=== PATIENT | female | born 1985 | race Caucasian/White ===

== ENCOUNTER 2019-10-28 08:28 | Emergency (ER) | payer SELFPAY ==
[2019-10-28 08:29] VITALS: BP 191/129; PULSE 102; RESP 16; TEMP 36.5; O2SAT 98; BMI 27.4
--- NOTE | 2019-10-28 08:44 | ED_ITS ---
HPI - Chest Pain General: Chief Complaint: Chest Pain Stated Complaint: Facial numbness, CP Time Seen by Provider: 10/28/19 08:44 History of Present Illness: HPI narrative: 34-year-old female who presents emergency room with a complaint of left-sided facial numbness and some drooping. She denies having any pain in her teeth she does have dental issues but is not had any swelling or pain per se in the teeth she is noticed her blood pressure is elevated when she arrived here. She has no other symptoms of weakness. Associated symptoms: Deny abdominal pain, dyspnea, fever(s), nausea, palpitation s, syncope or vomiting Review of Systems Const: Denies: fever, chills, body aches, fatigue, malaise or night sweats Eyes: Denies: change in vision or blurry vision ENMT: Denies: throat pain, oral sores/lesions, dental pain, nasal discharge or nasal congestion Card: Denies: chest pain, palpitations, irregular heart rhythm, edema, syncop e, shortness of breath on exertion, shortness of breath when lying down or leg pain with exertion Resp: Denies: shortness of breath, productive cough, non-productive cough or wheezing GI: Denies: abdominal pain, nausea, vomiting, vomiting blood, coffee grounds in vomit, difficulty swallowing, heartburn/indigestion, diarrhea, constipation, cramping, blood in stool or black tarry stool : Denies: flank pain, painful urination, urinary frequency, urinary urgency, urinary incontinence or blood in urine Musc: Denies: neck pain, back pain, extremity pain, extremity swelling, joint pain or joint swelling Skin/Breast: Denies: rash, itching or redness Neuro: Denies: headache, numbness in extremities, weakness in extremities, changes in sensation, lack of coordination, difficulty walking, frequent falls, dizziness, vertigo or confusion Psych: Denies: anxiety, depression, loss of interest, visual hallucinations, auditory hallucinations, suicidal ideation or homicidal ideation Endo: Denies: excessive urination, excessive thirst, tired all the time or cold intolerance Ethan/Lymph: Denies: easy bruising, easy bleeding, petechiae, enlarged lymph nodes or tender lymph nodes PFSH ED PFSH: Statuses (acute, chronic, etc) shown below reflect problem list status as previously entered and may not be historically accurate Social History Smoking and tobacco status: current every day smoker Physical Exam Const: COMMON NORMALS: average body habitus, oriented x3 and alert GENERAL APPEARANCE: cooperative, comfortable, well kempt and well developed NUTRITIONAL APPEARANCE: obese ORIENTATION/CONSCIOUSNESS: Yes awake, Yes oriented to person and Yes oriented to place HENMT: COMMON NORMALS: normocephalic, head/scalp atraumatic, EAC's normal, TM's normal bilaterally, external nose normal, moist oral mucous membranes and oropharynx normal HEAD & SCALP: normocephalic and atraumatic NOSE: external nose normal EXTERNAL AUDITORY CANAL: EAC's normal TYMPANIC MEMBRANE: TM's normal bilaterally MOUTH: oral and palatal mucosa normal, lip normal and tongue normal THROAT: posterior oropharynx normal and tonsils normal Eye: COMMON NORMALS: PERRL, EOMs intact bilaterally, conjunctivae normal and no scleral icterus CONJUNCTIVA: Yes conjunctivae normal PUPIL: Yes PERRL Neck/C-Spine: COMMON NORMALS: full ROM, no lymphadenopathy, supple, no meningeal signs and thyroid normal THYROID: thyroid normal and asymmetrical Lymph: LYMPHATIC: no lymphadenopathy noted Resp: COMMON NORMALS: normal respiratory effort, no retractions, no use of accessory muscles and clear to auscultation bilaterally AUSCULTATION: clear to auscultation bilaterally Cardio: COMMON NORMALS: regular rate and regular rhythm RATE: regular rate RHYTHM: regular rhythm HEART SOUNDS: no murmurs GI: COMMON NORMALS: normal to inspection, nondistended, normoactive bowel sounds, soft to palpation and no hepatosplenomegaly PALPATION: Yes soft and Yes no hepatosplenomegaly : COMMON NORMALS: Yes no CVA tenderness BLADDER/KIDNEY EXAM: Yes no CVA tenderness Back/Pelvis: COMMON NORMALS: no CVA tenderness LUMBAR SPINE/LOWER BACK: Yes normal to inspection Extremity: COMMON NORMALS: no clubbing, cyanosis or edema, no calf tenderness and no pedal edema Neuro: COMMON NORMALS: oriented x3 SENSORIUM/ORIENTATION: Yes alert, Yes oriented to person and Yes oriented to place MENINGEAL SIGNS: Yes no meningeal signs OTHER: Patient has an isolated facial nerve palsy.. She has like a partial Seo's palsy just affecting the cheek does not affect the eyes she has a little bit of droop of the corner of her mouth no tongue abnormality she did not have any aura of ear pain. She has no other symptoms at this time. Psych: APPEARANCE: Yes well kempt Skin: COMMON NORMALS: no rashes or lesions noted and skin turgor normal GENERAL SKIN EXAM: no rashes or lesions noted and turgor normal Course ED course: I do believe she has a partial nerve palsy not a central nervous system neurologic event. We will go ahead and discharge her home her blood pressure is elevated will start on a low-dose of amlodipine in addition to that we will add aspirin daily we will have her follow-up with Dr. Frias. The nerve palsy is on her right side of her face she has some right arm weakness that she is complaining of but no deficits are found on exam. Given that there both on the right side I do not suspect that this actually is a strokelike episode. Vital Signs: Vital signs: Vital Signs Temperature 97.7 F 10/28/19 08:29 Pulse Rate 83 10/28/19 12:52 Respiratory Rate 17 10/28/19 12:52 Blood Pressure 183/116 10/28/19 12:52 Pulse Oximetry 97 10/28/19 12:52 MDM - Chest Pain Lab Data: Labs: Lab Results 10/28/19 10/28/19 10/28/19 Range/Units 08:50 08:50 08:50 WBC 9.7 (4.0-10.0) 10^3/ uL RBC 5.00 (4.1-5.3) 10^6/u L Hgb 15.2 (11.5-15.3) g/dL Hct 45.2 (37.0-47.0) % MCV 90.4 (81-99) fL MCH 30.4 (28.0-34.0) pg MCHC 33.6 (30.0-36.0) g/dL RDW 12.1 (12.1-15.1) % Plt Count 305 (130-400) 10^3/c mm MPV 10.4 (7.4-10.4) fL Neut % (Auto) 68.7 % Lymph % (Auto) 23.1 % [place] % (Auto) 5.1 % Eos % (Auto) 2.1 % Baso % (Auto) 0.6 % Neut # (Auto) 6.7 (1.8-7.7) 10^3/u L Lymph # (Auto) 2.3 (0.8-4.8) 10^3/u L [place] # (Auto) 0.5 (0.2-0.9) 10^3/u L Eos # (Auto) 0.2 (0.0-0.8) 10^3/u L Baso # (Auto) 0.1 (0.0-0.1) 10^3/u L Nucleated RBC % (a uto) 0 % Nucleated RBCs # 0.0 /100WBC PT 13.50 H (10.5-13.3) SECO NDS INR 1.00 (0.8-1.2) APTT 30.8 (23.9-36.7) SECO NDS Sodium 139 (136-145) mmol/L Potassium 4.1 (3.5-5.1) mmol/L Chloride 101 (98-107) mmol/L Carbon Dioxide 26 (22-29) mmol/L Anion Gap 16.1 (5-19) BUN 15 (6-20) mg/dL Creatinine 0.6 (0.5-0.9) mg/dL GFR Calculation 113.1 (90-130) mL/min Glucose 142 H (74-109) mg/dL POC Glucose (70-110) mg/dL Calcium 10.0 (8.5-10.5) mg/dL Total Bilirubin 0.3 (0.15-1.2) mg/dL AST 20 (0-32) U/L ALT 21 (0-33) U/L Alkaline Phosphata se 85 (35-105) IU/L Troponin T Baselin e (0-10) ng/mL Troponin T 120 Min [place] (0-10) ng/mL Delta Troponin T (0-10) ABS# Total Protein 7.9 (6.6-8.7) g/dL Albumin 4.9 (3.5-5.2) g/dL Globulin 3.0 (1.3-4.6) g/dL Urine Color (Yellow) Urine Appearance (CLEAR) Urine pH (5-7) Ur Specific Gravit y (1.005-1.030) Urine Protein (Negative) Urine Glucose (UA) (Normal) Urine Ketones (Negative) Urine Occult Blood (Negative) Urine Nitrate (Negative) Urine Bilirubin (NEGATIVE) Urine Urobilinogen (Negative) mg/dL Ur Leukocyte Elisabet ase (Negative) Urine RBC (0-2) /hpf Urine WBC (0-5) /hpf Ur Squamous Epith Cells (0-5) Urine Bacteria (NONE) Urine Opiates Scre en (Negative) ng/mL Ur Barbiturates Sc reen (Negative) ng/mL Ur Phencyclidine S crn (Negative) ng/mL Ur Amphetamines Sc reen (Negative) ng/mL U Benzodiazepines Scrn (Negative) ng/mL Urine Cocaine Scre en (Negative) ng/mL U Marijuana (THC) Screen (Negative) ng/mL 10/28/19 10/28/19 10/28/19 Range/Units 08:50 09:19 09:25 WBC (4.0-10.0) 10^3/ uL RBC (4.1-5.3) 10^6/u L Hgb (11.5-15.3) g/dL Hct (37.0-47.0) % MCV (81-99) fL MCH (28.0-34.0) pg MCHC (30.0-36.0) g/dL RDW (12.1-15.1) % Plt Count (130-400) 10^3/c mm MPV (7.4-10.4) fL Neut % (Auto) % Lymph % (Auto) % [place] % (Auto) % Eos % (Auto) % Baso % (Auto) % Neut # (Auto) (1.8-7.7) 10^3/u L Lymph # (Auto) (0.8-4.8) 10^3/u L [place] # (Auto) (0.2-0.9) 10^3/u L Eos # (Auto) (0.0-0.8) 10^3/u L Baso # (Auto) (0.0-0.1) 10^3/u L Nucleated RBC % (a uto) % Nucleated RBCs # /100WBC PT (10.5-13.3) SECO NDS INR (0.8-1.2) APTT (23.9-36.7) SECO NDS Sodium (136-145) mmol/L Potassium (3.5-5.1) mmol/L Chloride (98-107) mmol/L Carbon Dioxide (22-29) mmol/L Anion Gap (5-19) BUN (6-20) mg/dL Creatinine (0.5-0.9) mg/dL GFR Calculation (90-130) mL/min Glucose (74-109) mg/dL POC Glucose 100 (70-110) mg/dL Calcium (8.5-10.5) mg/dL Total Bilirubin (0.15-1.2) mg/dL AST (0-32) U/L ALT (0-33) U/L Alkaline Phosphata se (35-105) IU/L Troponin T Baselin e 6 (0-10) ng/mL Troponin T 120 Min [place] (0-10) ng/mL Delta Troponin T (0-10) ABS# Total Protein (6.6-8.7) g/dL Albumin (3.5-5.2) g/dL Globulin (1.3-4.6) g/dL Urine Color Yellow (Yellow) Urine Appearance Clear (CLEAR) Urine pH 7.0 (5-7) Ur Specific Gravit y 1.005 (1.005-1.030) Urine Protein Neg (Negative) Urine Glucose (UA) Norm (Normal) Urine Ketones Negative (Negative) Urine Occult Blood 3+ H (Negative) Urine Nitrate Negative (Negative) Urine Bilirubin Neg (NEGATIVE) Urine Urobilinogen Norm (Negative) mg/dL Ur Leukocyte Elisabet ase Negative (Negative) Urine RBC 15-25 H (0-2) /hpf Urine WBC 0-4 H (0-5) /hpf Ur Squamous Epith Cells 0-4 H (0-5) Urine Bacteria 1+ H (NONE) Urine Opiates Scre en (Negative) ng/mL Ur Barbiturates Sc reen (Negative) ng/mL Ur Phencyclidine S crn (Negative) ng/mL Ur Amphetamines Sc reen (Negative) ng/mL U Benzodiazepines Scrn (Negative) ng/mL Urine Cocaine Scre en (Negative) ng/mL U Marijuana (THC) Screen (Negative) ng/mL 10/28/19 10/28/19 Range/Units 09:25 11:04 WBC (4.0-10.0) 10^3/ uL RBC (4.1-5.3) 10^6/u L Hgb (11.5-15.3) g/dL Hct (37.0-47.0) % MCV (81-99) fL MCH (28.0-34.0) pg MCHC (30.0-36.0) g/dL RDW (12.1-15.1) % Plt Count (130-400) 10^3/c mm MPV (7.4-10.4) fL Neut % (Auto) % Lymph % (Auto) % [place] % (Auto) % Eos % (Auto) % Baso % (Auto) % Neut # (Auto) (1.8-7.7) 10^3/u L Lymph # (Auto) (0.8-4.8) 10^3/u L [place] # (Auto) (0.2-0.9) 10^3/u L Eos # (Auto) (0.0-0.8) 10^3/u L Baso # (Auto) (0.0-0.1) 10^3/u L Nucleated RBC % (a uto) % Nucleated RBCs # /100WBC PT (10.5-13.3) SECO NDS INR (0.8-1.2) APTT (23.9-36.7) SECO NDS Sodium (136-145) mmol/L Potassium (3.5-5.1) mmol/L Chloride (98-107) mmol/L Carbon Dioxide (22-29) mmol/L Anion Gap (5-19) BUN (6-20) mg/dL Creatinine (0.5-0.9) mg/dL GFR Calculation (90-130) mL/min Glucose (74-109) mg/dL POC Glucose (70-110) mg/dL Calcium (8.5-10.5) mg/dL Total Bilirubin (0.15-1.2) mg/dL AST (0-32) U/L ALT (0-33) U/L Alkaline Phosphata se (35-105) IU/L Troponin T Baselin e (0-10) ng/mL Troponin T 120 Min [place] 6.00 (0-10) ng/mL Delta Troponin T 0 (0-10) ABS# Total Protein (6.6-8.7) g/dL Albumin (3.5-5.2) g/dL Globulin (1.3-4.6) g/dL Urine Color (Yellow) Urine Appearance (CLEAR) Urine pH (5-7) Ur Specific Gravit y (1.005-1.030) Urine Protein (Negative) Urine Glucose (UA) (Normal) Urine Ketones (Negative) Urine Occult Blood (Negative) Urine Nitrate (Negative) Urine Bilirubin (NEGATIVE) Urine Urobilinogen (Negative) mg/dL Ur Leukocyte Elisabet ase (Negative) Urine RBC (0-2) /hpf Urine WBC (0-5) /hpf Ur Squamous Epith Cells (0-5) Urine Bacteria (NONE) Urine Opiates Scre en Negative (Negative) ng/mL Ur Barbiturates Sc reen Negative (Negative) ng/mL Ur Phencyclidine S crn Negative (Negative) ng/mL Ur Amphetamines Sc reen Negative (Negative) ng/mL U Benzodiazepines Scrn Negative (Negative) ng/mL Urine Cocaine Scre en Negative (Negative) ng/mL U Marijuana (THC) Screen Negative (Negative) ng/mL Discharge Plan Discharge Patient Disposition: Home, Self-Care Clinical Impression: Seo's palsy, Right arm weakness, HTN (hypertension) Condition: Stable Prescriptions: New Adult Aspirin Regimen 81 mg tablet,delayed release (DR/EC) 81 mg PO DAILY Qty: 30 RF: 0 amlodipine 2.5 mg tablet 2.5 mg PO DAILY Qty: 20 RF: 0 No Action Multiple Vitamins Tablet 1 tab PO DAILY RF: 0 Vitamin C 1,000 mg Tablet 1,000 mg PO DAILY RF: 0 echinacea 500 mg Capsule 1,000 mg PO DAILY RF: 0 Elevate See Rx Instructions .ROUTE .COMPLEX RF: 0 Discharge Orders: Discharge Order (Routine); Ordered 10/28/19 Ordered By: Ronnell Lucas Referrals: Briseyda Frias MD [Physician] - (Discussed with Dr. Frias. She will see pt after the MRI head) Discharge Diet: Usual diet Discharge Activity: Resume usual activity Activity Restrictions/Additional Instructions: Case management will call with a schedule for MRI and follow-up appoint with neurology. Take aspirin daily. Discharge Date/Time: 10/28/19 12:48 Coding Level of Care Code ED Scientist for Demetrius Sotelo Exam Problem Focused NIH stroke score NIHSS Level Of Consciousness - 1a: 0 Level Of Consciousness Questions - 1b: Both Correct Level Of Consciousness Commands - 1c: Both Correct Best Gaze - 2: Normal Visual Mari - 3: No Visual Loss Facial Palsy - 4: Minor Paralysis Motor Arm Right - 5: Drift Motor Arm Left - 5: No Drift Motor Leg Right - 6: No Drift Motor Leg Left - 6: No Drift Limb Ataxia - 7: Absent Sensory - 8: Mild To Moderate Loss Best Language - 9: No Aphasia Dysarthia - 10: Normal Extinction And Inattention - 11: 0 Score Total Score: 3
[2019-10-28 08:51] VITALS: O2SAT 98
--- NOTE | 2019-10-28 09:02 | CT_ITS ---
WS: [id number] CT HEAD NONCONTRAST HISTORY: Symptoms of Acute Stroke TECHNIQUE: Contiguous axial imaging performed through the brain in 2.5 mm imaging. Bone and soft tiss ue windows. Sagittal and coronal reformats reviewed. All CT scans at [facility] use at ast one of these dose optimization techniques: automated exposure control; mA and/or kV adjustment pe r patient size (includes targeted exams where dose is matched to clinical indication); or iterative r econstruction. DLP: 773.42 mGy.cm COMPARISON: None available. No acute intracranial hemorrhage, midline shift or mass effect. No atrophy or prior infarcts or herniation. Perivascular space or lacunar infarct RIGHT inferior bas al ganglia. Ventricles: Normal size with no hydrocephalus. Paranasal sinuses: As visualized are clear. Mastoid air cells: Well pneumatized. Calvarium and scalp: Skull is intact with no soft tissue edema or swelling. CT/CT head wo con* [id number] IMPRESSION: 1. No acute intracranial hemorrhage or edema. 2. RIGHT lacunar infarct versus perivascular space.
--- NOTE | 2019-10-28 09:03 | ECG_ITS ---
Measurements Intervals [place] Rate: 94 P: 65 [place]: 140 QRS: 1 QRSD: 86 T: 21 QT: 355 QTc: 444 SINUS RHYTHM Compared to ECG 07/03/2017 12:25:02 No significant changes Electronically Signed On 10-28-2019 16:18:39 DROP SHIPMENT CLERK by Chris Flores M.D. [id number]
[2019-10-28 09:09] LABS: Basophils # 0.1 10^3/uL (0.0-0.1); Basophils % 0.6 %; Eosinophils # 0.2 10^3/uL (0.0-0.8); Eosinophils % 2.1 %; Hematocrit 45.2 % (37.0-47.0); Hemoglobin 15.2 g/dL (11.5-15.3); Lymphocytes # 2.3 10^3/uL (0.8-4.8); Lymphocytes % 23.1 %; Mean Corpuscular HGB Conc 33.6 g/dL (30.0-36.0); Mean Corpuscular Hemoglobin 30.4 pg (28.0-34.0); Mean Corpuscular Volume 90.4 fL (81-99); Mean Platelet Volume 10.4 fL (7.4-10.4); Monocytes # 0.5 10^3/uL (0.2-0.9); Monocytes % 5.1 %; Neutrophils # 6.7 10^3/uL (1.8-7.7); Neutrophils % 68.7 %; Nucleated Red Blood Cells % 0 %; Platelet Count 305 10^3/cmm (130-400); Red Cell Distribution Width 12.1 % (12.1-15.1); White Blood Count 9.7 10^3/uL (4.0-10.0)
[2019-10-28 09:18] LABS: Partial Thromboplastin Time 30.8 SECONDS (23.9-36.7)
[2019-10-28 09:20] LABS: Alanine Aminotransferase 21 U/L (0-33); Albumin Level 4.9 g/dL (3.5-5.2); Alkaline Phosphatase 85 IU/L (35-105); Anion Gap 16.1 (5-19); Aspartate Amino Transferase 20 U/L (0-32); Blood Urea Nitrogen 15 mg/dL (6-20); Carbon Dioxide 26 mmol/L (22-29); Chloride 101 mmol/L (98-107); Glomerular Filtration Rate 113.1 mL/min (90-130); Glucose 142 mg/dL (74-109); Potassium 4.1 mmol/L (3.5-5.1); Sodium 139 mmol/L (136-145); Total Bilirubin 0.3 mg/dL (0.15-1.2); Total Protein 7.9 g/dL (6.6-8.7)
[2019-10-28 09:22] LABS: Troponin(5th) Baseline 6 ng/mL (0-10)
[2019-10-28 09:24] LABS: Glucose Point of Care 100 mg/dL (70-110)
[2019-10-28 09:40] LABS: Add Urine Microscopic? YES; Bilirubin Urine Neg (NEGATIVE); Blood Urine 3+ (Negative); Glucose Urine UA Norm (Normal); Ketones Urine Negative (Negative); Leukocyte Esterase Urine Negative (Negative); Nitrate Urine Negative (Negative); Protein Urine Neg (Negative); Specific Gravity, Urine 1.005 (1.005-1.030); Urine Appearance Clear (CLEAR); Urine Color Yellow (Yellow); Urobilinogen Urine Norm (Negative)
[2019-10-28 09:55] LABS: Add Urine Culture? Yes; Amphetamines Screen Urine Negative (Negative); Bacteria Urine 1+; Barbiturates Screen Urine Negative (Negative); Benzodiazepines Screen Urine Negative (Negative); Cocaine Screen Urine Negative (Negative); Opiate Screen Urine Negative (Negative); PCP Screen Urine Negative (Negative); RBC Urine 15-25 /hpf (0-2); Squamous Epithelial Cell Urine 0-4 (0-5); THC Screen Urine Negative (Negative); WBC Urine 0-4 /hpf (0-5)
--- NOTE | 2019-10-28 10:48 | CT_ITS ---
WS: [id number] CT ANGIOGRAM CEREBRAL AND CAROTID ARTERIES HISTORY: Neurological deficiencies. Right-sided face tingling. TECHNIQUE: CT angiogram is performed of the carotid and cerebral arteries. During arterial injection imaging is obtained from the skull vertex to the aortic arch in 1.25 mm imaging. Coronal and sagittal reformats are submitted. Additional multi planar reformats of the carotid and cerebral arteries are submitted, MIP imaging also reviewed. NASCET criteria utilized. All CT scans at [facility] use at least one of these dose optimization techniques: automated exposure control; mA and/or kV ad justment per patient size (includes targeted exams where dose is matched to clinical indication); or iterative reconstruction. CONTRAST: Omnipaque 300; 95 mL IV. DLP: 2158.82 mGy.cm COMPARISON: None available. Carotid Angiogram: Right carotid: Common carotid artery: Arises normally from the innominate artery. No significant plaque or stenosis. Internal carotid artery: No plaque or stenosis. External carotid artery: Patent. Left carotid: Common carotid artery: Arises normally from the aorta. No significant plaque or stenosis. Internal carotid artery: No plaque or stenosis. External carotid artery: Patent. Right vertebral artery: Unremarkable. Left vertebral artery: Unremarkable. Arises normally from the subclavian artery. Subclavian arteries: No stenosis or significant abnormality. Upper thorax: Normal. Thyroid gland: Normal. Osseous structures: Unremarkable. In the nasopharynx there is variable soft tissue density and variable enhancement centered in the nicolas opharyngeal and adenoid soft tissue. Soft tissue nodularity measures 2.6 x 1.5 cm and extends across the midline. This may all be postinflammatory. As this is more than expected for a patient of this ag e and there is mild bulging of the contour of the adenoid tissue ENT evaluation should be considered. Small cervical chain lymph nodes are subcentimeter. Increased soft tissue prominence and asymmetry o f the RIGHT palatine tonsil. CEREBRAL ANGIOGRAM: Intracranial vertebral arteries: Normal with no significant atherosclerosis. Basilar artery: No significant stenosis or occlusion. No aneurysm. Intracranial Internal carotid arteries: Demonstrates no significant stenosis or plaque. Middle cerebral arteries: Normal. Anterior cerebral arteries and ACOM: Normal. Posterior cerebral arteries and PCOM's: Normal. Dural venous sinuses are normally enhancing. Mastoid air cells: Normal. Paranasal sinuses: Normal. Calvarium: Normal. CT/CT angio headneck* [id number] IMPRESSION: 1. Normal carotid arteries. 2. Unremarkable [place]. 3. Increased soft tissue with variable enhancement in the nasopharynx and priscilla oid bed. Asymmetry and prominence also of the RIGHT palatine tonsil. Prominent soft tissue is more than expected for this age group. May be postinflammatory b ut early neoplastic changes should be considered clinically. Recommend follow-u p with ENT. Direct visualization is recommended.
--- NOTE | 2019-10-28 11:03 | ECG_ITS ---
Measurements Intervals [place] Rate: 76 P: 61 [place]: 143 QRS: 8 QRSD: 86 T: 17 QT: 396 QTc: 446 SINUS RHYTHM INTERPRETATION BASED ON A DEFAULT AGE OF 40 YEARS Compared to ECG 07/03/2017 12:25:02 No significant changes Electronically Signed On 10-28-2019 16:22:16 PRN PHYSICAL THERAPIST by Chris Flores M.D. [id number]
[2019-10-28] MEDS: iohexol 350 mg/mL 100 mL Btl IV (11:25)
[2019-10-28 11:27] LABS: Troponin 5 2HR Delta 0 ABS# (0-10)
[2019-10-28 12:01] VITALS: BP 172/107; PULSE 75; RESP 16; O2SAT 98
[2019-10-28 12:03] VITALS: BP 172/107; PULSE 75; RESP 16; O2SAT 98
[2019-10-28 12:52] VITALS: BP 183/116; PULSE 83; RESP 17; O2SAT 97
--- NOTE | 2019-10-30 11:15 | DCPLANNER ---
manager respiratory was asked to schedule several appointments for patient. manager respiratory was asked to schedule an outpatient MRI, a follow up appointment with Dr. Frias, and to get patient established with primary care. manager respiratory spoke with patient, she stated that she did not have insurance, family independence case manager gave patient both of the financial recording clerk applications for the hospital to fill out and turn in. manager respiratory confirmed with patient that she did want the MRI, and to send results to Dr. Frias. manager respiratory faxed order for MRI to centralized scheduling, will call for appointment information. A MRI is scheduled for Tuesday, November 12, 2019 at 9:30. A follow up appointment is scheduled with Dr. Frias for November at 11:30. A follow up appointment [place] [facility] [place] [facility] [place] Neeru Montoya is scheduled for Thursday, November 07, 2019 at 10:30. manager respiratory called patient to inform patient of the scheduled appointments, unable to speak with patient at this time, a voicemail was left for patient to return family independence case manager phone call.
--- NOTE | 2019-11-21 14:48 | DCPLANNER ---
Patient did attend the following appointments: [facility] [place] 11.07.19 MRI - 11.12.19 Altagracia - 11.20.19
== END 2019-10-28 12:48 | disposition home or self-care (01) ==
PROVIDERS: Emergency Provider Family Medicine; Family Provider Family Medicine; PCP Family Medicine
DX: G51.0 Bell's palsy (principal); R53.1 Weakness; I10 Essential (primary) hypertension; F17.210 Nicotine dependence, cigarettes, uncomplicated
CPT/HCPCS: 36415; 36416; 70450; 70496; 70498; 80053; 80307; 81001; 82962; 84484; 85025; 85610; 85730; 87077; 87086; 87186; 93005; 99284; Q9967

== ENCOUNTER 2019-11-17 15:12 | Outpatient (CLI) | payer SELFPAY ==
--- NOTE | 2019-11-17 15:23 | MR_ITS ---
WS: [id number] MRI HEAD WITH CONTRAST TECHNIQUE: Sagittal T1, T2 axial, T2 axial FLAIR, axial susceptibility weighted imaging, axial diffus ion weighted images, and coronal T2 images were obtained. Pre and post-T1 axial and post T1 coronal i mages. ADC and FSPGR images. CLINICAL INFORMATION: RIGHT ARM AND FACIAL WEAKNESS COMPARISON: None. FINDINGS: No evidence of restricted diffusion to suggest acute ischemia. Ventricular system and basal cisterns are patent. Normal brown-white differentiation. No suspicious intracranial signal abnormalities. Isa l posterior fossa. Normal vascular flow voids at the skull base. No extra-axial fluid collections. Pa ranasal sinuses and mastoid air cells well aerated. No hemosiderin on susceptibly weighted images. Normal optic chiasm and pituitary infundibulum. Normal cavernous sinus and Meckel's cave. Temporal lobes and hippocampal formations are normal in appearanc e. No abnormal intracranial enhancement. Visualized dural venous sinuses are normal. A few retention cysts in the posterior nasopharynx. Prominent lymphoid tissue in the posterior nasopharynx likely niko ctive. No other significant findings. MR/MR head wo/w con [id number] IMPRESSION: 1. No evidence of restricted diffusion to suggest acute ischemia. 2. No suspicious intracranial signal abnormalities. Normal brown-white differen tiation. 3. No abnormal intracranial enhancement. 4. Prominent lymphoid tissue in the posterior nasopharynx likely reactive. 5. No abnormal intracranial enhancement. 6. Temporal lobes and hippocampal formations are normal in appearance. No asym metric atrophy.
== END 2019-11-17 15:13 | disposition home or self-care (01) ==
LOC: RADWPI 15:16
PROVIDERS: Family Provider Family Medicine; PCP Nurse Practitioner; Visit Provider Specialist
DX: R29.810 Facial weakness (principal); R53.1 Weakness; R07.89 Other chest pain
CPT/HCPCS: 70553

== ENCOUNTER → 2019-11-20 11:28 | Outpatient (BNVA) | payer SELFPAY | PROVIDERS: Family Provider Family Medicine; PCP Nurse Practitioner; Referring Provider Family Medicine; Visit Provider Specialist | DX: G50.9 Disorder of trigeminal nerve, unspecified (principal); R07.9 Chest pain, unspecified; R00.2 Palpitations; F17.210 Nicotine dependence, cigarettes, uncomplicated | CPT/HCPCS: 99204; 99214 ==

== ENCOUNTER → 2019-11-25 16:42 | Outpatient (BNVA) | payer SELFPAY | PROVIDERS: Family Provider Family Medicine; PCP Nurse Practitioner; Referring Provider Nurse Practitioner; Visit Provider Nurse Practitioner | DX: B96.20 Unspecified Escherichia coli [E. coli] as the cause of diseases classified elsewhere (principal); N39.0 Urinary tract infection, site not specified; I10 Essential (primary) hypertension | CPT/HCPCS: 81003 ==

== ENCOUNTER 2019-12-08 08:52 | Outpatient (CLI) | payer SELFPAY ==
--- NOTE | 2019-12-08 08:45 | USCV_ITS ---
Crystal Davies Age: 34 Gender: F : 1985 Exam Date: 12/08/2019 09:26 Ordering Phys: Briseyda Frias MD Technologist: Andi Hoover [place]am [place] [facility] [place]ication: PALP BP: 135 / 100 HR: 99 Rhythm: Sinus Technical Quality: MEASUREMENTS (Male / Female) Normal Values 2D ECHO LV Diastolic Diameter PLAX 4.4 cm 4.2 - 5.9 / 3.9 - 5.3 cm LV Systolic Diameter PLAX 3.1 cm IVS Diastolic Thickness 0.9 cm 0.6 - 1.0 / 0.6 - 0.9 cm IVS Systolic Thickness 1.3 cm LVPW Diastolic Thickness 1.0 cm 0.6 - 1.0 / 0.6 - 0.9 cm LVPW Systolic Thickness 1.4 cm LVOT Diameter 2.0 cm LV Ejection Fraction 2D Teich 57.2 % LV Ejection Fraction MOD 2C 61.1 % LV Ejection Fraction 2C AL 61.4 % LA Diameter 3.0 cm LA Width 3.6 cm LA Height 4.0 cm RA Width 2.9 cm RA Height 4.3 cm Aorta at Sinotubular Diameter 2.4 cm M-MODE LV Diastolic Diameter MM 5.1 cm 4.2 - 5.9 / 3.9 - 5.3 cm LV Systolic Diameter MM 3.3 cm LV Ejection Fraction MM Teich 65.2 % IVS Diastolic Thickness MM 0.9 cm 0.6 - 1.0 / 0.6 - 0.9 cm IVS Systolic Thickness MM 1.4 cm LVPW Diastolic Thickness MM 1.2 cm 0.6 - 1.0 / 0.6 - 0.9 cm LVPW Systolic Thickness MM 2.1 cm RV Diastolic Diameter MM 1.2 cm Aortic Annulus Diameter 3.3 cm LA Ao Ratio MM 0.9 MV E Point Septal Separation 1.8 cm DOPPLER AV Peak Velocity 155.0 cm/s LVOT Peak Velocity 117.0 cm/s AV Area Cont Eq vti 2.4 cm squared AV Area Cont Eq pk 2.4 cm squared MV Area PHT 5.0 cm squared Mitral E to A Ratio 1.4 MV E' Velocity 15.0 cm/s Mitral E to MV E' Ratio 9.5 Mitral E to LV E' Lateral Ratio 7.8 Mitral E to LV E' Septal Ratio 12.0 TR Peak Velocity 149.0 cm/s TR Peak Gradient 8.8 mmHg TV Peak E Velocity 89.0 cm/s Right Atrial Pressure 3.0 mmHg Pulmonary Artery Systolic Pressu 11.9 mmHg PV Peak Velocity 113.0 cm/s FINDINGS Left Ventricle Normal left ventricular size and systolic function, EF 62 %. No regional wall motion abnormalities. Right Ventricle The right ventricle is normal in size and function. Right Atrium The right atrium is normal in size. Left Atrium The left atrium is normal in size. Mitral Valve No gross abnormalities noted Aortic Valve No gross abnormalities noted Tricuspid Valve No gross abnormalities noted Pulmonic Valve No gross abnormalities noted Pericardium Normal pericardium without effusion. Aorta Normal ascending aorta dimension. CONCLUSIONS Normal left ventricular size and systolic function, EF 62 %. No regional wall motion abnormalities. Normal chamber sizes. No significant valvular abnormalities noted No intracardiac shunts by color flow Doppler examination No intracardiac masses There is no pericardial effusion. No previous study is available for comparison. Dr Dhruv Dumont MD FACC (Electronically Signed) Final Date: 10 December 2019 06:49 S
== END 2019-12-08 08:53 | disposition home or self-care (01) ==
LOC: US 09:07
PROVIDERS: Family Provider Nurse Practitioner; PCP Nurse Practitioner; Visit Provider Specialist
DX: R00.2 Palpitations (principal)
CPT/HCPCS: 93306

== ENCOUNTER → 2020-01-26 11:13 | Outpatient (BNVA) | payer SELFPAY | PROVIDERS: Family Provider Family Medicine; PCP Nurse Practitioner; Visit Provider Specialist | DX: F45.8 Other somatoform disorders (principal); J35.1 Hypertrophy of tonsils; R00.2 Palpitations; F17.210 Nicotine dependence, cigarettes, uncomplicated | CPT/HCPCS: 99214 ==

== ENCOUNTER 2020-04-11 13:47 | Emergency (ER) | payer SELFPAY ==
[2020-04-11 13:47] VITALS: BP 162/122; PULSE 114; RESP 22; TEMP 36.7; O2SAT 98; BMI 28.3
--- NOTE | 2020-04-11 13:55 | XRR_ITS ---
PROCEDURE INFORMATION: Exam: XR Chest, 1 View Exam date and time: 04/11/2020 1:56 PM Age: 35 years old Clinical indication: Chest pain; Type not specified; Patient HX: Smoker, ; additional info: Cp, SOB TECHNIQUE: Imaging protocol: XR of the chest Views: Frontal portable upright view of the chest. COMPARISON: CR Chest 1 [place] [id number] 02/07/2017 6:18 PM FINDINGS: Lungs: The lungs are clear bilaterally. The pulmonary vasculature is normal. Pleural space: No pleural effusion. No pneumothorax. Heart/Mediastinum: The heart is normal in size and contour. Mediastinum: Stable. Bones/joints: Stable. XR/XR chest 1V portable [id number] IMPRESSION: No acute cardiopulmonary abnormality identified.
--- NOTE | 2020-04-11 13:59 | PC.NURSE ---
EMS stated that patient briefly mentioned that her daughters friend who had been missing for a few days, had been reported found just prior to this episode. EMS stated patient would not speak much of situation and appeared tearful and turned away when asked about.
[2020-04-11 14:17] LABS: Basophils # 0.1 10^3/uL (0.0-0.1); Basophils % 0.7 %; Eosinophils # 0.3 10^3/uL (0.0-0.8); Eosinophils % 1.8 %; Hematocrit 45.9 % (37.0-47.0); Hemoglobin 14.9 g/dL (11.5-15.3); Lymphocytes # 3.1 10^3/uL (0.8-4.8); Lymphocytes % 20.8 %; Mean Corpuscular HGB Conc 32.5 g/dL (30.0-36.0); Mean Corpuscular Hemoglobin 29.9 pg (28.0-34.0); Mean Platelet Volume 10.4 fL (7.4-10.4); Monocytes # 0.7 10^3/uL (0.2-0.9); Monocytes % 4.9 %; Neutrophils # 10.62 10^3/uL (1.8-7.7); Neutrophils % 71.5 %; Nucleated Red Blood Cells % 0 %; Platelet Count 365 10^3/cmm (130-400); Red Blood Count 4.99 10^6/uL (4.1-5.3); Red Cell Distribution Width 13.5 % (12.1-15.1); White Blood Count 14.8 10^3/uL (4.0-10.0)
[2020-04-11] MEDS: sodium chloride 0.9% 1,000 ML 999 ML IV (14:29)
[2020-04-11] MEDS: LORazepam 2 mg/mL INJ 1 mL 1 MG IVP (14:29)
[2020-04-11 14:30] VITALS: BP 132/89; PULSE 103; RESP 14; O2SAT 99
--- NOTE | 2020-04-11 14:36 | ED_ITS ---
HPI - Arrhythmia/Palpitations General: Chief Complaint: Arrhythmia/Palpitations Stated Complaint: HTN / CHEST HEAVINESS Time Seen by Provider: 04/11/20 13:55 Source: patient and EMS Mode of arrival: EMS Limitations: no limitations History of Present Illness: HPI narrative: 35-year-old female who states she has been having palpitations along with chest pain and shortness of breath over 2 hours. She states she has been stressed and anxious lately. She denies any worsening or improving factors. Patient states her pain is currently a 2 out of 10. She denies any vomiting or diarrhea. She has no history of heart issues. complaint: rapid heart beat Associated symptoms: Deny nausea or vomiting Review of Systems Const: Denies: fever(s), chills, body aches or change in appetite Eyes: Denies: blurry vision or eye discomfort ENMT: Denies: throat pain or dental pain Card: Reports: chest pain and palpitations Resp: Reports: dyspnea GI: Denies: abdominal pain, nausea, vomiting or diarrhea : Denies: dysuria Musc: Denies: neck pain or back pain Skin/Breast: Denies: rash Neuro: Denies: headache(s) Psych: Denies: depression Ethan/Lymph: Denies: easy bruising All/Imm: Denies: urticaria PFSH ED PFSH: Medical History Anxiety History of kidney stones Surgical History Hx of tubal ligation 2017 Family History Other CAD (coronary artery disease) Cancer Chronic kidney disease (CKD) Diabetes Hyperlipidemia Hypertension Stroke Social History Smoking and tobacco status: current every day smoker cigarettes Packs smoked per day: 0.5 Alcohol intake: current Alcohol intake frequency: few times a week History of recent travel: No Agree to transfusion: Yes (11/07/2019) Physical Exam Const: COMMON NORMALS: no acute distress, patient oriented x3 and healthy appearing HENMT: COMMON NORMALS: normocephalic and atraumatic HEAD & SCALP: normocephalic and atraumatic Eye: COMMON NORMALS: Equal, round and reactive pupils present and EOMs intact bilaterally PUPIL: Yes Equal, round and reactive pupils present Neck/C-Spine: COMMON NORMALS: full ROM and supple Chest: COMMONS NORMALS: normal inspection of the chest and normal palpation of entire chest wall Resp: COMMON NORMALS: normal respiratory effort, No retractions, No use of accessory muscles and clear to auscultation bilaterally AUSCULTATION: clear to auscultation bilaterally Cardio: COMMON NORMALS: regular rhythm and No murmurs present (Cardio) RATE: tachycardic RHYTHM: regular rhythm GI: COMMON NORMALS: Normal to inspection, nondistended, normoactive bowel sounds present, Soft to palpation, non-tender and no masses PALPATION: Yes Soft to palpation Extremity: COMMON NORMALS: normal to inspection and full ROM Neuro: COMMON NORMALS: patient oriented x3, moves all extremities and no focal motor deficits Psych: COMMON NORMALS: mental status grossly normal, Normal thought process present and cooperative THOUGHT PROCESS: Normal thought process present Skin: COMMON NORMALS: no rashes or lesions noted and no wounds GENERAL SKIN EXAM: no rashes or lesions noted Course Vital Signs: Vital signs: Vital Signs Temperature 98.0 F 04/11/20 13:47 Pulse Rate 93 04/11/20 15:48 Respiratory Rate 14 04/11/20 15:48 Blood Pressure 120/71 04/11/20 15:48 Pulse Oximetry 98 04/11/20 15:48 MDM - Arrhythmia/Palpitations MDM Narrative: Medical decision making narrative: Patient presents here with chest pain that is atypical in nature. Patient is well-appearing here and feels much improved after Ativan. Initial and repeat troponin are normal. Patient's d-dimer is negative as well. She is stable for discharge and is to follow-up with her primary care doctor in 3 to 5 days return if worsening. Lab Data: Labs: Lab Results 04/11/20 04/11/20 04/11/20 Range/Units 13:30 13:30 13:30 WBC 14.8 H (4.0-10.0) 10^3/ uL RBC 4.99 (4.1-5.3) 10^6/u L Hgb 14.9 (11.5-15.3) g/dL Hct 45.9 (37.0-47.0) % MCV 92.0 (81-99) fL MCH 29.9 (28.0-34.0) pg MCHC 32.5 (30.0-36.0) g/dL RDW 13.5 (12.1-15.1) % Plt Count 365 (130-400) 10^3/c mm MPV 10.4 (7.4-10.4) fL Neut % (Auto) 71.5 % Lymph % (Auto) 20.8 % [place] % (Auto) 4.9 % Eos % (Auto) 1.8 % Baso % (Auto) 0.7 % Neut # (Auto) 10.62 H (1.8-7.7) 10^3/u L Lymph # (Auto) 3.1 (0.8-4.8) 10^3/u L [place] # (Auto) 0.7 (0.2-0.9) 10^3/u L Eos # (Auto) 0.3 (0.0-0.8) 10^3/u L Baso # (Auto) 0.1 (0.0-0.1) 10^3/u L Nucleated RBC % (a uto) 0 % Nucleated RBCs # 0.0 /100WBC D-Dimer (0-0.59) ug/mIFE U Sodium 139 (136-145) mmol/L Potassium 3.7 (3.5-5.1) mmol/L Chloride 100 (98-107) mmol/L Carbon Dioxide 21 L (22-29) mmol/L Anion Gap 21.7 H (5-19) BUN 14 (6-20) mg/dL Creatinine 0.5 (0.5-0.9) mg/dL GFR Calculation 138.8 H (90-130) mL/min Glucose 98 (65-115) mg/dL Calculated Osmolal ity 284 L (285-295) mOsm/k g Calcium 10.4 (8.5-10.5) mg/dL Total Bilirubin 0.3 (0.15-1.2) mg/dL AST 21 (0-32) U/L ALT 20 (0-33) U/L Alkaline Phosphata se 78 (35-105) IU/L Troponin T Baselin e 6 (0-10) ng/L Troponin T 120 Min [place] (0-10) ng/L Total Protein 7.4 (6.6-8.7) g/dL Albumin 5.5 H (3.5-5.2) g/dL Globulin 1.9 (1.3-4.6) g/dL 04/11/20 04/11/20 Range/Units 13:30 15:35 WBC (4.0-10.0) 10^3/ uL RBC (4.1-5.3) 10^6/u L Hgb (11.5-15.3) g/dL Hct (37.0-47.0) % MCV (81-99) fL MCH (28.0-34.0) pg MCHC (30.0-36.0) g/dL RDW (12.1-15.1) % Plt Count (130-400) 10^3/c mm MPV (7.4-10.4) fL Neut % (Auto) % Lymph % (Auto) % [place] % (Auto) % Eos % (Auto) % Baso % (Auto) % Neut # (Auto) (1.8-7.7) 10^3/u L Lymph # (Auto) (0.8-4.8) 10^3/u L [place] # (Auto) (0.2-0.9) 10^3/u L Eos # (Auto) (0.0-0.8) 10^3/u L Baso # (Auto) (0.0-0.1) 10^3/u L Nucleated RBC % (a uto) % Nucleated RBCs # /100WBC D-Dimer <= 0.27 (0-0.59) ug/mIFE U Sodium (136-145) mmol/L Potassium (3.5-5.1) mmol/L Chloride (98-107) mmol/L Carbon Dioxide (22-29) mmol/L Anion Gap (5-19) BUN (6-20) mg/dL Creatinine (0.5-0.9) mg/dL GFR Calculation (90-130) mL/min Glucose (65-115) mg/dL Calculated Osmolal ity (285-295) mOsm/k g Calcium (8.5-10.5) mg/dL Total Bilirubin (0.15-1.2) mg/dL AST (0-32) U/L ALT (0-33) U/L Alkaline Phosphata se (35-105) IU/L Troponin T Baselin e (0-10) ng/L Troponin T 120 Min [place] 6.00 (0-10) ng/L Total Protein (6.6-8.7) g/dL Albumin (3.5-5.2) g/dL Globulin (1.3-4.6) g/dL Imaging Data^: CXR: Radiologist's impression: [address] [address] XRay Report Signed Patient: Crystal Davies Unit #: [id number] : 1985 Age/Sex: 35 / F ADM Date: 04/11/20 Loc: ER Room/Bed: Attending Dr: Ordering Provider/Ordering MD: Carrie Hernandes MD Date of Service: 04/11/20 Procedure(s): XR chest 1V portable [id number] Accession Number(s): [id number] Report Number: [id number] PROCEDURE INFORMATION: Exam: XR Chest, 1 View Exam date and time: 04/11/2020 1:56 PM Age: 35 years old Clinical indication: Chest pain; Type not specified; Patient HX: Smoker, ; additional info: Cp, SOB TECHNIQUE: Imaging protocol: XR of the chest Views: Frontal portable upright view of the chest. COMPARISON: CR Chest 1 [place] [id number] 02/07/2017 6:18 PM FINDINGS: Lungs: The lungs are clear bilaterally. The pulmonary vasculature is normal. Pleural space: No pleural effusion. No pneumothorax. Heart/Mediastinum: The heart is normal in size and contour. Mediastinum: Stable. Bones/joints: Stable. XR/XR chest 1V portable [id number] IMPRESSION: No acute cardiopulmonary abnormality identified. EKG Data^: EKG 1: Attestation: I personally reviewed and interpreted this EKG as follows: EKG interpretation date: 04/11/20 EKG interpretation time: 14:44 Interpretation: nsr hr [address] or t wave abnormalities qrs 93 qtc 417 Other EKG comments: Chest X-Ray 04/11/20 13:55 IMPRESSION: No acute cardiopulmonary abnormality identified. Discharge Plan Discharge Patient Disposition: Home, Self-Care Clinical Impression: Chest pain Qualifiers: Chest pain type: unspecified Qualified Code(s): R07.9 - Chest pain, unspecified Condition: Stable Prescriptions: New ondansetron 4 mg tablet,disintegrating 4 mg PO Q6H PRN (Reason: nausea and vomiting) Qty: 14 RF: 0 No Action amlodipine 10 mg tablet 10 mg PO DAILY Qty: 30 RF: 3 clonidine HCl 0.1 mg tablet 0.1 mg PO Q6H 30 Days Qty: 120 RF: 1 multivitamin [Multiple Vitamins] Tablet 1 tab PO DAILY RF: 0 Discharge Orders: Discharge Order (Routine); Ordered 04/11/20 Ordered By: Carrie Hernandes Referrals: Vidya Montoya FNP [Primary Care Provider] - 1-3 days Discharge Diet: Advance as tolerated Discharge Activity: Resume usual activity Patient Instructions: Chest Pain (ED) Coding Level of Care Code ED Assistant Womens Volleyball Coach for Demetrius Fwd Exam Comprehensive
[2020-04-11 14:40] LABS: Alanine Aminotransferase 20 U/L (0-33); Albumin Level 5.5 g/dL (3.5-5.2); Alkaline Phosphatase 78 IU/L (35-105); Anion Gap 21.7 (5-19); Aspartate Amino Transferase 21 U/L (0-32); Blood Urea Nitrogen 14 mg/dL (6-20); Calcium 10.4 mg/dL (8.5-10.5); Carbon Dioxide 21 mmol/L (22-29); Chloride 100 mmol/L (98-107); Globulin 1.9 g/dL (1.3-4.6); Glomerular Filtration Rate 138.8 mL/min (90-130); Glucose 98 mg/dL (65-115); Osmolality Calculated 284 mOsm/kg (285-295); Potassium 3.7 mmol/L (3.5-5.1); Sodium 139 mmol/L (136-145); Total Bilirubin 0.3 mg/dL (0.15-1.2); Total Protein 7.4 g/dL (6.6-8.7)
[2020-04-11 14:42] LABS: Troponin(5th) Baseline 6 ng/L (0-10)
[2020-04-11 15:13] LABS: D Dimer <= 0.27 ug/mIFEU (0-0.59)
[2020-04-11 15:48] VITALS: BP 120/71; PULSE 93; RESP 14; O2SAT 98
--- NOTE | 2020-04-11 15:55 | ECG_ITS ---
[facility] Test Date: 2020-04-11 Pat Name: Crystal Davies Department: Room: Gender: Female Head Bone Grinder: Rosa M BRUCEB: 1985 Requested By: Carrie Hernandes Order Number: [id number] Roosevelt MD: Chris Flores M.D. Measurements Intervals [place] Rate: 96 P: 71 W[place]: 146 QRS: 10 QRSD: 93 T: 30 QT: 363 QTc: 461 Interpretive Statements SINUS RHYTHM WITH SINUS ARRHYTHMIA Compared to ECG 10/28/2019 11:00:42 No significant changes Electronically Signed On 04-11-2020 19:10:11 CDT by Chris Flores M.D. [id number]
[2020-04-11 16:17] LABS: Troponin 5 2HR Delta 0 ABS# (0-10)
== END 2020-04-11 16:58 | disposition home or self-care (01) ==
PROVIDERS: Emergency Provider Emergency Medicine; PCP Nurse Practitioner
DX: R07.9 Chest pain, unspecified (principal); F17.210 Nicotine dependence, cigarettes, uncomplicated
CPT/HCPCS: 12345; 36415; 71045; 80053; 84484; 85025; 85378; 93005; 96361; 96374; 99282; 99284; J2060; J7030

== ENCOUNTER 2020-04-13 10:29 | Emergency (ER) | payer SELFPAY ==
[2020-04-13 11:13] VITALS: BP 160/106; PULSE 86; RESP 16; TEMP 37.1; O2SAT 98; BMI 27.4
--- NOTE | 2020-04-13 11:18 | W.ED.GENADLT ---
HPI - General Adult General: Chief complaint: General Medical Stated complaint: SAYS SHE HAS HIGH BP Time Seen by Provider: 04/13/20 11:18 History of Present Illness: HPI narrative: Patient is a 35-year-old female who presents to the ED with episode of chest heaviness, high blood pressure and high heart rate. Patient has a past medical history of anxiety and hypertension. Patient was seen here for same complaint on 04/11. Patient has an appointment with her PCP on . Today patient had symptoms of chest heaviness, elevated blood pressure and elevated heart rate this morning. Patient describes that she first checked her blood pressure noticed that it was elevated and she started having the symptoms of chest heaviness feeling hot. Most of patient's symptoms resolved after she took her clonidine this morning. She states she still has high blood pressure currently. Associated symptoms: Reports chest pain; Deny dyspnea, headache(s), nausea, rash, palpitations or vomiting Review of Systems Const: Denies: fever(s), chills or fatigue Eyes: Denies: change in vision or eye discomfort ENMT: Denies: throat pain, odynophagia, nasal discharge or nasal congestion Card: Reports: chest pain; Denies: palpitations, edema, swelling of feet/ankles, dyspnea on exertion or orthopnea Resp: Denies: dyspnea, productive cough or non-productive cough GI: Denies: abdominal pain, nausea, vomiting, diarrhea, constipation or hematochezia : Denies: flank pain, dysuria or hematuria Musc: Denies: neck pain, back pain or extremity swelling Skin/Breast: Denies: rash or new lesions Neuro: Denies: headache(s), numbness in extremities or weakness in extremities Psych: Reports: anxiety PFSH ED PFSH: Medical History Anxiety History of kidney stones Surgical History Hx of tubal ligation 2017 Family History Other CAD (coronary artery disease) Cancer Chronic kidney disease (CKD) Diabetes Hyperlipidemia Hypertension Stroke Social History Smoking and tobacco status: current every day smoker cigarettes Packs smoked per day: 1 Alcohol intake: current Alcohol intake frequency: few times a week History of recent travel: No Agree to transfusion: Yes (11/07/2019) Female Reproductive History: Date of last menstrual period: 04/12/20 Physical Exam Const: COMMON NORMALS: patient oriented x3, healthy appearing and alert GENERAL APPEARANCE: cooperative and anxious HENMT: COMMON NORMALS: normocephalic HEAD & SCALP: normocephalic MOUTH: Normal oral and palatal mucosa present THROAT: posterior oropharynx normal and uvula midline Eye: COMMON NORMALS: Equal, round and reactive pupils present PUPIL: Yes Equal, round and reactive pupils present Neck/C-Spine: COMMON NORMALS: supple GENERAL: Yes normal visual inspection Resp: COMMON NORMALS: normal respiratory effort, No retractions, No use of accessory muscles and clear to auscultation bilaterally EFFORT & INSPECTION: Yes able to speak in complete sentences AUSCULTATION: clear to auscultation bilaterally Cardio: COMMON NORMALS: regular rate, regular rhythm, S1 normal heart sound present, S2 normal heart sound present, No gallops present (Cardio), No clicks present (Cardio), No murmurs present (Cardio) and Peripheral pulses 2+ throughout RATE: regular rate RHYTHM: regular rhythm HEART SOUNDS: S1 normal heart sound present and S2 normal heart sound present PERIPHERAL PULSES: Peripheral pulses 2+ throughout GI: COMMON NORMALS: Normal to inspection, nondistended, normoactive bowel sounds present, Soft to palpation, non-tender and no masses PALPATION: Yes Soft to palpation : COMMON NORMALS: Yes no CVA tenderness BLADDER/KIDNEY EXAM: Yes no CVA tenderness Back/Pelvis: COMMON NORMALS: no CVA tenderness Extremity: COMMON NORMALS: normal to inspection and no pedal edema Neuro: COMMON NORMALS: patient oriented x3 and moves all extremities SENSORIUM/ORIENTATION: Yes alert Skin: COMMON NORMALS: no rashes or lesions noted GENERAL SKIN EXAM: no rashes or lesions noted and dry skin Course Vital Signs: Vital signs: Vital Signs Temperature 98.7 F 04/13/20 11:13 Pulse Rate 76 04/13/20 12:52 Respiratory Rate 18 04/13/20 12:52 Blood Pressure 119/96 04/13/20 12:52 Pulse Oximetry 96 04/13/20 12:52 MDM - General Adult MDM Narrative: Medical decision making narrative: Pt is a 35 y/o female that comes to the ED with an episode of chest heaviness with elevated BP and HR. Pt was seen here in the ED for same complaint on 04/11. She has an appointment with her PCP on .Cardiac testing on 04/11 was negative. She has a pmh of anxiety and hypertension. during exam pt appears very anxious and gets emotional when talking about her symptoms. She is very worried about her episodes of elevated bp and HR. pt was given ativan while in the ED and all her symptoms improved. EKG showed normal sinus rhythm and troponin negative. CBC and CMP were unremarkable. pt was discharged and told to follow up with her PCP on . She was provided with a script for 1mg Ativan 5 tablets to prn increasing anxiety. I told her to talk with her pcp about anxiety symptoms and discuss management. pt can return to ED if symptoms worsen. pt understood and agreed with plan. Lab Data: Attestation: I reviewed the patient's lab results. Labs: Lab Results 04/13/20 04/13/20 04/13/20 Range/Units 11:35 11:35 11:35 WBC 9.4 (4.0-10.0) 10^3/ uL RBC 5.03 (4.1-5.3) 10^6/u L Hgb 15.2 (11.5-15.3) g/dL Hct 46.8 (37.0-47.0) % MCV 93.0 (81-99) fL MCH 30.2 (28.0-34.0) pg MCHC 32.5 (30.0-36.0) g/dL RDW 13.2 (12.1-15.1) % Plt Count 317 (130-400) 10^3/c mm MPV 10.0 (7.4-10.4) fL Neut % (Auto) 74.3 % Lymph % (Auto) 18.8 % [place] % (Auto) 4.5 % Eos % (Auto) 1.1 % Baso % (Auto) 1.0 % Neut # (Auto) 7.01 (1.8-7.7) 10^3/u L Lymph # (Auto) 1.8 (0.8-4.8) 10^3/u L [place] # (Auto) 0.4 (0.2-0.9) 10^3/u L Eos # (Auto) 0.1 (0.0-0.8) 10^3/u L Baso # (Auto) 0.1 (0.0-0.1) 10^3/u L Nucleated RBC % (a uto) 0 % Nucleated RBCs # 0.0 /100WBC Sodium 138 (136-145) mmol/L Potassium 4.0 (3.5-5.1) mmol/L Chloride 103 (98-107) mmol/L Carbon Dioxide 24 (22-29) mmol/L Anion Gap 15.0 (5-19) BUN 9 (6-20) mg/dL Creatinine 0.4 L (0.5-0.9) mg/dL GFR Calculation 179.6 H (90-130) mL/min Glucose 101 (65-115) mg/dL Calculated Osmolal ity 282 L (285-295) mOsm/k g Calcium 9.9 (8.5-10.5) mg/dL Total Bilirubin 0.4 (0.15-1.2) mg/dL AST 18 (0-32) U/L ALT 24 (0-33) U/L Alkaline Phosphata se 71 (35-105) IU/L Troponin T Baselin e 6 (0-10) ng/L Total Protein 7.5 (6.6-8.7) g/dL Albumin 5.1 (3.5-5.2) g/dL Globulin 2.4 (1.3-4.6) g/dL EKG Data^: EKG 1: Attestation: I personally reviewed and interpreted this EKG as follows: EKG interpretation date: 04/13/20 Interpretation: Normal sinus rhythm, 70 bpm, no ST segment elevation or depression seen. Computer generated interpretation: Chest X-Ray 04/13/20 11:19 IMPRESSION: No acute findings. Discharge Plan Discharge Patient Disposition: Home, Self-Care Clinical Impression: Anxiety Chest pain Qualifiers: Chest pain type: unspecified Qualified Code(s): R07.9 - Chest pain, unspecified Condition: Stable Prescriptions: No Action amlodipine 10 mg tablet 10 mg PO DAILY Qty: 30 RF: 3 ondansetron 4 mg tablet,disintegrating 4 mg PO Q6H PRN (Reason: nausea and vomiting) Qty: 14 RF: 0 multivitamin [Multiple Vitamins] Tablet 1 tab PO DAILY RF: 0 Tylenol Extra Strength 500 mg Tablet 1,000 mg PO PRN RF: 0 clonidine HCl 0.1 mg tablet 0.1 mg PO Q6H PRN (Reason: unknown) RF: 0 Discharge Orders: Discharge Order (Routine); Ordered 04/13/20 Ordered By: Ishmael Martinez Referrals: Vidya Montoya FNP [Primary Care Provider] - Discharge Diet: Regular Discharge Activity: Increase activity as tolerated Patient Instructions: Chest Pain - Noncardiac, Chest Pain (ED), Anxiety (ED) Activity Restrictions/Additional Instructions: Follow-up with medical provider as directed in the next 3-5 days. Take medications as prescribed. Return to the ER or your medical provider if condition worsens. Please read and understand discharge instructions. If any questions, please ask. Discharge Date/Time: 04/13/20 12:54 Coding Level of Care Code ED Section Leader And Machine Setter for Demetrius Fwd Exam Comprehensive
--- NOTE | 2020-04-13 11:19 | XRR_ITS ---
PROCEDURE INFORMATION: Exam: XR Chest, 1 View Exam date and time: 04/13/2020 11:58 AM Age: 35 years old Clinical indication: Chest pain; Type not specified; Additional info: Chest pain, high BP TECHNIQUE: Imaging protocol: XR of the chest Views: 1 view. COMPARISON: CR (CHEST, ) 04/11/2020 2:06 PM FINDINGS: Lungs: Unremarkable. No consolidation. Pleural space: Unremarkable. No pleural effusion. No pneumothorax. Heart/Mediastinum: Unremarkable. No cardiomegaly. Bones/joints: No acute findings. XR/XR chest 1V portable [id number] IMPRESSION: No acute findings.
[2020-04-13 11:42] LABS: Basophils # 0.1 10^3/uL (0.0-0.1); Eosinophils # 0.1 10^3/uL (0.0-0.8); Eosinophils % 1.1 %; Hematocrit 46.8 % (37.0-47.0); Hemoglobin 15.2 g/dL (11.5-15.3); Lymphocytes # 1.8 10^3/uL (0.8-4.8); Lymphocytes % 18.8 %; Mean Corpuscular HGB Conc 32.5 g/dL (30.0-36.0); Mean Corpuscular Hemoglobin 30.2 pg (28.0-34.0); Monocytes # 0.4 10^3/uL (0.2-0.9); Monocytes % 4.5 %; Neutrophils # 7.01 10^3/uL (1.8-7.7); Neutrophils % 74.3 %; Nucleated Red Blood Cells % 0 %; Platelet Count 317 10^3/cmm (130-400); Red Blood Count 5.03 10^6/uL (4.1-5.3); Red Cell Distribution Width 13.2 % (12.1-15.1); White Blood Count 9.4 10^3/uL (4.0-10.0)
[2020-04-13 11:57] LABS: Alanine Aminotransferase 24 U/L (0-33); Albumin Level 5.1 g/dL (3.5-5.2); Alkaline Phosphatase 71 IU/L (35-105); Aspartate Amino Transferase 18 U/L (0-32); Blood Urea Nitrogen 9 mg/dL (6-20); Calcium 9.9 mg/dL (8.5-10.5); Carbon Dioxide 24 mmol/L (22-29); Chloride 103 mmol/L (98-107); Globulin 2.4 g/dL (1.3-4.6); Glomerular Filtration Rate 179.6 mL/min (90-130); Glucose 101 mg/dL (65-115); Osmolality Calculated 282 mOsm/kg (285-295); Sodium 138 mmol/L (136-145); Total Bilirubin 0.4 mg/dL (0.15-1.2); Total Protein 7.5 g/dL (6.6-8.7)
[2020-04-13] MEDS: LORazepam 2 mg Tablet PO (11:57)
[2020-04-13 11:59] LABS: Troponin(5th) Baseline 6 ng/L (0-10)
[2020-04-13 12:52] VITALS: BP 119/96; PULSE 76; RESP 18; O2SAT 96
--- NOTE | 2020-04-13 17:20 | ECG_ITS ---
[facility] Test Date: 2020-04-13 Pat Name: Crystal Davies Department: Room: Gender: Female Director Child: : 1985 Requested By: Ishmael Martinez Order Number: [id number] Albert MD: Angelic Morley M.D. Measurements Intervals [place] Rate: 70 P: 30 [place]: 145 QRS: 34 QRSD: 94 T: 33 QT: 401 QTc: 433 Interpretive Statements SINUS RHYTHM Compared to ECG 04/11/2020 14:44:12 Sinus arrhythmia no longer present Electronically Signed On 04-13-2020 19:19:45 CDT by Angelic Morley M.D. [id number]
== END 2020-04-13 12:54 | disposition home or self-care (01) ==
PROVIDERS: Emergency Provider Physician Assistant; PCP Nurse Practitioner
DX: F41.9 Anxiety disorder, unspecified (principal); R07.9 Chest pain, unspecified; F17.210 Nicotine dependence, cigarettes, uncomplicated
CPT/HCPCS: 12345; 36415; 71045; 80053; 84484; 85025; 93005; 99281; 99283

== ENCOUNTER → 2020-04-15 15:17 | Outpatient (BNVA) | payer SELFPAY | PROVIDERS: PCP Nurse Practitioner; Visit Provider Family Medicine | DX: R07.9 Chest pain, unspecified (principal); R00.0 Tachycardia, unspecified; F41.9 Anxiety disorder, unspecified; I10 Essential (primary) hypertension | CPT/HCPCS: 84443; 85651 ==

== ENCOUNTER → 2020-05-06 12:39 | Outpatient (BNVA) | payer SELFPAY | PROVIDERS: PCP Nurse Practitioner; Visit Provider Nurse Practitioner Family | DX: N39.0 Urinary tract infection, site not specified (principal); R31.9 Hematuria, unspecified; Z68.29 Body mass index [BMI] 29.0-29.9, adult | CPT/HCPCS: 81000 ==

== ENCOUNTER → 2020-05-29 12:50 | Outpatient (BNVA) | payer SELFPAY | PROVIDERS: PCP Nurse Practitioner; Visit Provider Nurse Practitioner Family | DX: N39.0 Urinary tract infection, site not specified (principal); R31.9 Hematuria, unspecified; Z68.30 Body mass index [BMI] 30.0-30.9, adult; F17.210 Nicotine dependence, cigarettes, uncomplicated; Z71.89 Other specified counseling; R30.0 Dysuria | CPT/HCPCS: 80053; 81000; 87077; 87086; 87186 ==

== ENCOUNTER → 2020-06-17 14:48 | Outpatient (BNVA) | payer SELFPAY | PROVIDERS: PCP Family Medicine Adult Medicine; Visit Provider Family Medicine Adult Medicine | DX: N39.0 Urinary tract infection, site not specified (principal); B96.20 Unspecified Escherichia coli [E. coli] as the cause of diseases classified elsewhere; F41.9 Anxiety disorder, unspecified; I10 Essential (primary) hypertension; R00.0 Tachycardia, unspecified; Z76.89 Persons encountering health services in other specified circumstances | CPT/HCPCS: 81000 ==

== ENCOUNTER → 2020-12-26 15:07 | Outpatient (BNVA) | payer SELFPAY | PROVIDERS: PCP Family Medicine Adult Medicine; Visit Provider Nurse Practitioner | DX: M25.571 Pain in right ankle and joints of right foot (principal); X50.1XXA Overexertion from prolonged static or awkward postures, initial encounter | CPT/HCPCS: 73610 ==

== ENCOUNTER 2021-01-07 08:13 | Emergency (ER) | payer SELFPAY ==
[2021-01-07 08:25] VITALS: BP 157/96; PULSE 92; RESP 18; TEMP 36.4; O2SAT 98; BMI 28.3
[2021-01-07 08:30] VITALS: BP 157/96; PULSE 102; RESP 20; O2SAT 99
--- NOTE | 2021-01-07 08:33 | W.ED.FEMALGU ---
HPI - Female Genitourinary General: Chief complaint: Urogenital-Female Stated complaint: LEFT FLANK PAIN Time Seen by Provider: 01/07/21 08:15 History of Present Illness: HPI Narrative: 35-year-old female comes in with left flank pain radiating down into the groin this started 2 days ago but has progressively worsened the point where she cannot work. She does not recall a particular injury to her back. She has a history of kidney stones last kidney stone was approximately 15 years ago while she was she ended up having a stent placed in that have a lithotripsy after delivery of the baby. She is just completing what she relates is being a normal menstrual period. MD elicited complaint: flank pain (Left) Pertinent past history: recurrent UTIs and other (Renal stone) Onset (ago): day(s) (2) Location of symptoms: flank Severity: severe Female Urogenital Radiation: Suprapubic and LLQ Quality of pain: sharp Consistency: constant and progressively worsening Vaginal discharge: none Vaginal bleeding: moderate (Consistent with moderate menstrual period) Urinary symptoms: Foul Smelling Urine Exacerbating factors: none Relieving factors: none Associated symptoms: Deny abdominal pain, short of breath, fevers/chills, headache(s), nausea, rash, seizures, syncope, vaginal bleeding, vaginal discharge or weakness Treatment prior to arrival: none Date of Last Menstrual Period: 12/30/20 Review of Systems Const: Denies: fever(s), chills, body aches, change in appetite, fatigue or malaise ENMT: Denies: throat pain, ear or mastoid pain, nasal discharge or nasal congestion Card: Denies: syncope Resp: Denies: dyspnea, productive cough or non-productive cough GI: Denies: abdominal pain or nausea : Denies: vaginal discharge Skin/Breast: Denies: rash or pruritus Neuro: Denies: headache(s) PFS ED PFSH: Medical History Anxiety History of kidney stones Muscle tension headache Surgical History Hx of tubal ligation 2017 Family History Other CAD (coronary artery disease) Cancer Chronic kidney disease (CKD) Diabetes Hyperlipidemia Hypertension Stroke Social History Smoking and tobacco status: current every day smoker cigarettes Packs smoked per day: 1 Alcohol intake: current Alcohol intake frequency: few times a week History of recent travel: No Agree to transfusion: Yes (11/07/2019) Female Reproductive History: Date of last menstrual period: 12/30/20 Physical Exam Const: COMMON NORMALS: no acute distress GENERAL APPEARANCE: cooperative and comfortable ORIENTATION/CONSCIOUSNESS: Yes awake, Yes oriented to person, Yes oriented to place and Yes oriented to time HENMT: COMMON NORMALS: normocephalic, atraumatic, hearing grossly normal bilaterally, external ears normal, EAC's normal, TM's normal bilaterally, Normal nasal mucous membranes and turbinates present, moist oral mucous membranes and oropharynx normal HEAD & SCALP: normocephalic and atraumatic NOSE: Normal nasal mucous membranes and turbinates present EXTERNAL EAR: Yes external ears normal EXTERNAL AUDITORY CANAL: EAC's normal TYMPANIC MEMBRANE: TM's normal bilaterally Eye: COMMON NORMALS: Equal, round and reactive pupils present, EOMs intact bilaterally, conjunctivae normal and no scleral icterus CONJUNCTIVA: Yes conjunctivae normal PUPIL: Yes Equal, round and reactive pupils present Neck/C-Spine: COMMON NORMALS: full ROM, no lymphadenopathy, supple and no JVD Lymph: LYMPHATIC: no lymphadenopathy noted and no lymphedema noted Resp: COMMON NORMALS: normal respiratory effort, No retractions, No use of accessory muscles and clear to auscultation bilaterally AUSCULTATION: clear to auscultation bilaterally Cardio: COMMON NORMALS: no JVD, regular rate, regular rhythm and No murmurs present (Cardio) RATE: regular rate RHYTHM: regular rhythm GI: COMMON NORMALS: Soft to palpation and No hepatosplenomegaly present AUSCULTATION: Yes normoactive bowel sounds PALPATION: Yes Soft to palpation, No Tenderness to palpation present (GI), No Guarding due to palpation present (GI) and Yes No hepatosplenomegaly present : SPECULUM EXAM - VAGINA: No vaginal bleeding OB/EXTERNAL & SPECULUM: No vaginal bleeding Extremity: COMMON NORMALS: normal to inspection, capillary refill normal, no clubbing, cyanosis or edema, no calf tenderness and no pedal edema Neuro: SENSORIUM/ORIENTATION: Yes oriented to person, Yes oriented to place and Yes oriented to time Skin: COMMON NORMALS: no rashes or lesions noted GENERAL SKIN EXAM: no rashes or lesions noted Course Vital Signs: Vital signs: Vital Signs Temperature 97.6 F 01/07/21 08:25 Pulse Rate 83 01/07/21 09:30 Respiratory Rate 18 01/07/21 09:30 Blood Pressure 129/83 01/07/21 09:30 Pulse Oximetry 98 01/07/21 09:30 MDM - Female MDM Narrative: Medical decision making narrative: UA negative. CT is negative for ureterolithiasis. It is musculoskeletal discharge home follow-up with primary care doctor return if worsens Lab Data: Labs: Lab Results 01/07/21 01/07/21 01/07/21 Range/Units 08:45 08:45 08:45 WBC 9.9 (4.0-10.0) 10^3/ uL RBC 4.94 (4.1-5.3) 10^6/u L Hgb 14.9 (11.5-15.3) g/dL Hct 45.2 (37.0-47.0) % MCV 91.5 (81-99) fL MCH 30.2 (28.0-34.0) pg MCHC 33.0 (30.0-36.0) g/dL RDW 13.2 (12.1-15.1) % Plt Count 330 (130-400) 10^3/c mm MPV 10.0 (7.4-10.4) fL Neut % (Auto) 72.1 % Lymph % (Auto) 20.1 % [place] % (Auto) 4.1 % Eos % (Auto) 2.8 % Baso % (Auto) 0.7 % Neut # (Auto) 7.12 (1.8-7.7) 10^3/u L Lymph # (Auto) 2.0 (0.8-4.8) 10^3/u L [place] # (Auto) 0.4 (0.2-0.9) 10^3/u L Eos # (Auto) 0.3 (0.0-0.8) 10^3/u L Baso # (Auto) 0.1 (0.0-0.1) 10^3/u L Nucleated RBC % (a uto) 0 % Nucleated RBCs # 0.0 /100WBC Sodium 137 (136-145) mmol/L Potassium 4.1 (3.5-5.1) mmol/L Chloride 102 (98-107) mmol/L Carbon Dioxide 26 (22-29) mmol/L Anion Gap 13.1 (5-19) BUN 14 (6-20) mg/dL Creatinine 0.6 (0.5-0.9) mg/dL GFR Calculation 112.5 (90-130) mL/min Glucose 150 H (65-115) mg/dL Calculated Osmolal ity 287 (285-295) mOsm/k g Calcium 9.4 (8.5-10.5) mg/dL HCG, Qual Negative (Negative) Urine Color (Yellow) Urine Appearance (CLEAR) Urine pH (5-7) Ur Specific Gravit y (1.005-1.030) Urine Protein (Negative) Urine Glucose (UA) (Normal) Urine Ketones (Negative) Urine Blood (Negative) Urine Nitrate (Negative) Urine Bilirubin (Negative) Urine Urobilinogen (Negative) mg/dL Ur Leukocyte Elisabet ase (Negative) 01/07/21 Range/Units 08:45 WBC (4.0-10.0) 10^3/ uL RBC (4.1-5.3) 10^6/u L Hgb (11.5-15.3) g/dL Hct (37.0-47.0) % MCV (81-99) fL MCH (28.0-34.0) pg MCHC (30.0-36.0) g/dL RDW (12.1-15.1) % Plt Count (130-400) 10^3/c mm MPV (7.4-10.4) fL Neut % (Auto) % Lymph % (Auto) % [place] % (Auto) % Eos % (Auto) % Baso % (Auto) % Neut # (Auto) (1.8-7.7) 10^3/u L Lymph # (Auto) (0.8-4.8) 10^3/u L [place] # (Auto) (0.2-0.9) 10^3/u L Eos # (Auto) (0.0-0.8) 10^3/u L Baso # (Auto) (0.0-0.1) 10^3/u L Nucleated RBC % (a uto) % Nucleated RBCs # /100WBC Sodium (136-145) mmol/L Potassium (3.5-5.1) mmol/L Chloride (98-107) mmol/L Carbon Dioxide (22-29) mmol/L Anion Gap (5-19) BUN (6-20) mg/dL Creatinine (0.5-0.9) mg/dL GFR Calculation (90-130) mL/min Glucose (65-115) mg/dL Calculated Osmolal ity (285-295) mOsm/k g Calcium (8.5-10.5) mg/dL HCG, Qual (Negative) Urine Color Yellow (Yellow) Urine Appearance Clear (CLEAR) Urine pH 7 (5-7) Ur Specific Gravit y 1.015 (1.005-1.030) Urine Protein Neg (Negative) Urine Glucose (UA) Norm (Normal) Urine Ketones Negative (Negative) Urine Blood Neg (Negative) Urine Nitrate Negative (Negative) Urine Bilirubin Neg (Negative) Urine Urobilinogen Norm (Negative) mg/dL Ur Leukocyte Elisabet ase Negative (Negative) Discharge Plan Discharge Patient Disposition: Home Clinical Impression: Back pain Condition: Stable Prescriptions: New hydrocodone-acetaminophen 5-325 mg tablet 1 tab PO Q6H PRN (Reason: pain) Qty: 15 RF: 0 diclofenac sodium 75 mg tablet,delayed release (DR/EC) 75 mg PO Q12H PRN (Reason: pain) Qty: 20 RF: 0 Medrol (Jb) 4 mg tablets,dose pack See Rx Instructions .ROUTE .COMPLEX Qty: 21 RF: 0 tizanidine 4 mg capsule 4 mg PO Q6H PRN (Reason: muscle spasticity) Qty: 20 RF: 0 Discontinued ibuprofen 200 mg Tablet 400 - 800 mg PO PRN RF: 0 No Action acetaminophen [Tylenol Extra Strength] 500 mg Tablet 1,000 mg PO PRN RF: 0 multivitamin Tablet 1 tab PO QAM RF: 0 clonidine HCl 0.1 mg tablet 0.1 mg PO Q6H PRN (Reason: Blood Pressure) RF: 0 amlodipine 10 mg tablet 10 mg PO DAILY@17 RF: 0 Discharge Orders: Discharge ED (Routine); Ordered 01/07/21 Ordered By: Ronnell Lucas Referrals: Myke Cutlre MD [Primary Care Provider] - Discharge Diet: Usual diet Discharge Activity: Resume usual activity Patient Instructions: Opioid Safety Coding Level of Care Code ED Svp Programmatic Tv for Tig Fwd Exam Comprehensive
--- NOTE | 2021-01-07 08:36 | CT_ITS ---
WS: [id number] CT ABDOMEN AND PELVIS NONCONTRAST HISTORY: flank pain TECHNIQUE: Imaging performed through the abdomen and pelvis. Coronal and sagittal reformats are submi tted. All CT scans at [facility] use at least one of these dose optimization techniques: automated exposure control; mA and/or kV adjustment per patient size (includes targeted exams where d ose is matched to clinical indication); or iterative reconstruction. DLP: 1430.28 mGy.cm COMPARISON: 02/26/2018 Lower thorax: Mild dependent changes at the lung bases. Heart size is normal. Liver: Diffuse hepatic steatosis and hepatomegaly. Gallbladder: Normal gallbladder. Pancreas: Normal size and attenuation. Normal pancreatic duct. No pancreatitis or mass. Spleen: Normal. Adrenal glands: Normal. No mass. Right kidney: Nonobstructing 3 mm calcification lower pole. No hydronephrosis or mass. Left kidney: 10 x 13 mm nonobstructing calcification upper pole. There are additional 2 mm calcificat ions in the lower pole. No hydronephrosis. Aorta: Normal abdominal aorta, no aneurysm or atherosclerosis. No free fluid, intraperitoneal air or significant lymphadenopathy. GI tract: Appendix is normal. No GI tract obstruction. No wall thickening or mucosal abnormality. Abdominal wall: Negative. No hernia. Pelvis: Normal. Osseous structures: Unremarkable. CT/CT kidney stone [id number] IMPRESSION: 1. Bilateral nephrolithiasis without obstruction. 2. Largest calcification upper pole LEFT kidney measures 10 x 13 mm. 3. Hepatic steatosis and hepatomegaly. 4. Normal appendix.
[2021-01-07 08:53] LABS: Basophils # 0.1 10^3/uL (0.0-0.1); Basophils % 0.7 %; Eosinophils # 0.3 10^3/uL (0.0-0.8); Eosinophils % 2.8 %; Hematocrit 45.2 % (37.0-47.0); Hemoglobin 14.9 g/dL (11.5-15.3); Lymphocytes % 20.1 %; Mean Corpuscular Hemoglobin 30.2 pg (28.0-34.0); Mean Corpuscular Volume 91.5 fL (81-99); Monocytes # 0.4 10^3/uL (0.2-0.9); Monocytes % 4.1 %; Neutrophils # 7.12 10^3/uL (1.8-7.7); Neutrophils % 72.1 %; Nucleated Red Blood Cells % 0 %; Platelet Count 330 10^3/cmm (130-400); Red Blood Count 4.94 10^6/uL (4.1-5.3); Red Cell Distribution Width 13.2 % (12.1-15.1); White Blood Count 9.9 10^3/uL (4.0-10.0)
[2021-01-07 08:56] VITALS: RESP 20
[2021-01-07] MEDS: morphine 4 mg/mL SDV 1 mL 6 MG IVP (08:56)
[2021-01-07] MEDS: ondansetron 2 mg/ML SDV 2 mL 4 MG IVP (08:56)
[2021-01-07] MEDS: sodium chloride 0.9% 1,000 ML 999 ML IV (08:57)
[2021-01-07 09:06] LABS: HCG, Serum Qual Negative (Negative)
[2021-01-07 09:07] LABS: Add Urine Microscopic? NO; Charge for UA Resulting for Rev
[2021-01-07 09:08] LABS: Anion Gap 13.1 (5-19); Blood Urea Nitrogen 14 mg/dL (6-20); Calcium 9.4 mg/dL (8.5-10.5); Carbon Dioxide 26 mmol/L (22-29); Chloride 102 mmol/L (98-107); Glomerular Filtration Rate 112.5 mL/min (90-130); Glucose 150 mg/dL (65-115); Osmolality Calculated 287 mOsm/kg (285-295); Potassium 4.1 mmol/L (3.5-5.1); Sodium 137 mmol/L (136-145)
[2021-01-07 09:18] LABS: Bilirubin Urine Neg (Negative); Blood Urine Neg (Negative); Glucose Urine UA Norm (Normal); Ketones Urine Negative (Negative); Leukocyte Esterase Urine Negative (Negative); Nitrate Urine Negative (Negative); Protein Urine Neg (Negative); Specific Gravity, Urine 1.015 (1.005-1.030); Urine Appearance Clear (CLEAR); Urine Color Yellow (Yellow); Urobilinogen Urine Norm (Negative); pH Urine 7 (5-7)
[2021-01-07 09:30] VITALS: BP 129/83; PULSE 83; RESP 18; O2SAT 98
[2021-01-07 10:50] VITALS: BP 126/77; PULSE 72; RESP 20; TEMP 36.4; O2SAT 96
== END 2021-01-07 10:54 | disposition home or self-care (01) ==
PROVIDERS: Emergency Provider Family Medicine; PCP Family Medicine Adult Medicine
DX: M54.5 Low back pain (principal); F17.210 Nicotine dependence, cigarettes, uncomplicated; Z87.442 Personal history of urinary calculi
CPT/HCPCS: 74176; 80048; 81003; 84703; 85025; 96361; 96374; 96375; 99284; J2270; J2405; J7030

== ENCOUNTER 2022-01-25 10:54 | Emergency (ER) | payer SELFPAY ==
--- NOTE | 2022-01-25 11:06 | ECG_ITS ---
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 Measurements Intervals [place] Rate: 103 P: 69 TN: 144 QRS: 28 QRSD: 94 T: 40 QT: 345 QTc: 452 Interpretive Statements SINUS TACHYCARDIA ABNORMAL RHYTHM ECG Compared to ECG 04/13/2020 11:50:36 Sinus rhythm no longer present Electronically Signed On 01-25-2022 16:53:08 CDT by Chris Flores M.D. [id number]
--- NOTE | 2022-01-25 11:06 | XR_ITS ---
WS: [id number] Portable AP upright chest, 01/25/2022 Clinical Data: chest pain Comparison: Portable chest, 04/13/2020. Findings: No nodules, masses or effusions are seen. The heart is normal. The pulmonary vascularity is not increased. No pneumonia or pneumothorax is seen. XR/XR chest 1V portable [id number] Impression: Negative chest.
[2022-01-25 11:07] VITALS: BP 167/114; PULSE 112; RESP 20; TEMP 36.9; O2SAT 100
--- NOTE | 2022-01-25 11:26 | CT_ITS ---
WS: [id number] CT ABDOMEN AND PELVIS WITH CONTRAST HISTORY: upper abdominal pain radiating to the back TECHNIQUE: Imaging performed of the abdomen and pelvis with IV contrast. Single phase imaging of the abdomen. Coronal and sagittal reformats are submitted. All CT scans at [facility] use at [address] [facility] one of these dose optimization techniques: automated exposure control; mA and/or kV adjustment per patient size (includes targeted exams where dose is matched to clinical indication); or iterative re construction. IV CONTRAST: Omnipaque 300; 95 mL IV. Oral contrast: No DLP: 1757.87 mGy.cm COMPARISON: 01/07/2021 Lower thorax: Lung bases are clear. Heart is normal size. No hiatal hernia. Liver/biliary system: Normal size with no intrahepatic dilatation. Normal portal vein. Gallbladder: Normal. No gallstones or wall thickening. No pericholecystic fluid. Pancreas: Normal size pancreas and pancreatic duct. No adjacent inflammation. Spleen: Normal size spleen. No mass or infarct. Adrenal glands: Normal. Right kidney: Normal. Left kidney: Normal size kidney with no perinephric stranding. No significant change in the upper nahun e calcification measuring 12 x 10 mm. There is a very small amount of increased fluid surrounding the calcification probably representing very mild calyceal obstruction. No ureteral calcification. Aorta: Normal. Lymphadenopathy: None. Free fluid: None. GI tract: Nondistended stomach and small bowel. No obstruction. The appendix is normal. No colon obst ruction. Abdominal wall: Unremarkable abdominal wall. No hernia. Pelvis: No free fluid or adenopathy in the pelvis. Complex cystic mass RIGHT ovary measures 3.4 x 2.7 cm. Probably a cluster of follicles. Not significantly enlarged. There is a smaller follicle in the LEFT ovary. Normal anteverted uterus. Bones: Unremarkable. CT/CT abdomen pelvis w con* [id number] IMPRESSION: 1. Normal appendix. 2. No evidence for pancreatitis. 3. No GI tract obstruction or free air. 4. No change in size of the upper pole LEFT renal calcification. There is a sm all amount of adjacent fluid suggesting there may be very slight calyceal obstr uction. The ureter is not dilated. 5. Bilateral small ovarian follicles.
--- NOTE | 2022-01-25 11:31 | ED_ITS ---
HPI - General Adult General: Chief complaint: Abdominal Pain Stated complaint: back pain, abdominal pain, CP Time Seen by Provider: 01/25/22 11:08 History of Present Illness: Patient is a 36-year-old female with history of recurrent UTI presenting to the emergency room for evaluation of epigastric/back pain. Patient tells me that she has had pain for the last 3 days. She thinks that she may become ill with a urinary tract infection and started taking amoxicillin 3 days ago which she had previousely. Around the same time, patient developed pressure-like achy epigastric radiating towards back pain. Patient denies any stabbing abdominal pain. Patient denies any nausea/vomiting, fever/chills. Patient denies any diarrhea melena hematochezia. Patient tells me that she usually does not have any urinary complaints including urinary urgency, dysuria, or polyuria. No prior history of kidney stones. No prior abdominal surgeries. Patient denies any cough, runny nose, sore throat, chest pain, shortness breath or palpitation. Onset: 3 days ago Duration:3 days Location:home Severity:moderate Associated symptoms: Reports nausea and vomiting; Deny chest pain, dyspnea, rash or palpitations Review of Systems Const: Denies: fever(s) or chills Eyes: Denies: change in vision ENMT: Denies: mouth pain Card: Denies: chest pain or palpitations Resp: Denies: dyspnea or non-productive cough GI: Reports: abdominal pain, nausea and vomiting; Denies: diarrhea : Denies: dysuria Musc: Reports: back pain; Denies: extremity pain Skin/Breast: Denies: rash or new lesions Neuro: Denies: weakness in extremities Psych: Reports: other (Normal mood) Ethan/Lymph: Denies: easy bruising PFSH ED PFSH: Medical History Anxiety History of kidney stones Muscle tension headache Surgical History Hx of tubal ligation 2017 Family History Other CAD (coronary artery disease) Cancer Chronic kidney disease (CKD) Diabetes Hyperlipidemia Hypertension Stroke Social History Smoking and tobacco status: current every day smoker cigarettes Packs smoked per day: 1 Alcohol intake: current Alcohol intake frequency: few times a week History of recent travel: No Agree to transfusion: Yes (11/07/2019) Physical Exam Const: COMMON NORMALS: alert HENMT: COMMON NORMALS: atraumatic HEAD & SCALP: atraumatic MOUTH: moist mucous membranes not abnormal Eye: COMMON NORMALS: EOMs intact bilaterally and conjunctivae normal CONJUNCTIVA: Yes conjunctivae normal Neck/C-Spine: COMMON NORMALS: full ROM and supple Resp: COMMON NORMALS: normal respiratory effort and clear to auscultation radha aterally AUSCULTATION: clear to auscultation bilaterally Cardio: RATE: tachycardic GI: COMMON NORMALS: Soft to palpation PALPATION: Yes Soft to palpation OTHER: + Mild epigastric tenderness palpation. NO guarding rebound, guarding, rigidity. No CVA tenderness to percussion. Neg Jacques/Neg McBurney's point tenderness, no suprabupic tenderness to palpation. Back/Pelvis: OTHER: + No midline lumbar/cervical/thoracic tenderness palpation, no step-off no obvious deformity Extremity: COMMON NORMALS: full ROM Neuro: SENSORIUM/ORIENTATION: Yes alert MOTOR EXAM: No Abnormal motor strength present and Other motor observations present (no focal motor deficits) Psych: COMMON NORMALS: speech normal SPEECH: Yes normal speech MOOD & AFFECT: Yes euthymic mood Course Vital Signs: Vital signs: Vital Signs Temperature 98.4 F 01/25/22 11:07 Pulse Rate 85 01/25/22 14:00 Respiratory Rate 16 01/25/22 14:00 Blood Pressure 145/94 01/25/22 14:00 Pulse Oximetry 96 01/25/22 14:00 [facility] - General Adult Medical Decision Making 36-year-old female presenting to emergency room for concerns of midepigastric dull pain nausea and vomiting x3 days. On exam, patient has mild epigastric pain and tenderness palpation. Initially pathet was noted to be tachycardiac to the 100-110s. No Jacques sign, no guarding no rebound tenderness. White count 12.6. EKG is nonischemic, troponin of 7. Do not suspect ACS currenlty. Labs within normal limit. CT of pelvis did not show any signs of acute pathology. Patient has 2+ DP/PT pulses bilaterally in lower extremity. Do not suspect abdominal aortic dissection. In addition, patient has no focal neurological deficit in the lower extremity, saddle anesthesia bladder or bowel problem. Do not suspect patient has acute cord compression. Patient received GI cocktail IVF, is now able to tolerate p.o. without diffic ulty. Patient's heart rate improved after IVF and reassessment in the emergency room. At the present time, this still could be emergent intra-abdominal pathology. Have given patient close follow-up with primary care provider. Patient given to return function for any worsening pain, fever/chills, inability tolerate p.o., or any new concerning complaints that this could be early stages of an abdominal pathologies. Incidental findings of left renal calcification discussed extensively with pat ieted. Patient received a copy of the CT report with the documented findings. Patient is instructed to follow up urgently with specialists. Rx Maalox/pepcid PRN dyspepsia, and zofran PRN nausea/vomiting Disposition: Discharge. Patient counseled regarding diagnostic impression, treatment plan. Patient given ED strict return precautions to return for continuation, worsening, or development of new symptoms. Instructed to f/u w/ PCP regarding symptoms today. Patient verbalized understanding. Please return if you develop continued nausea, vomiting, or develop fevers, chills, abdominal pain, abdominal pain that is in the lower right side of your abdomen, or any other concerning signs or symptoms. Lab Data : 01/25/22 11:40 01/25/22 11:40 Radiology Impressions Chest X-Ray 01/25/22 11:06 Impression: Negative chest. Abdomen/Pelvis CT 01/25/22 11:26 IMPRESSION: 1. Normal appendix. 2. No evidence for pancreatitis. 3. No GI tract obstruction or free air. 4. No change in size of the upper pole LEFT renal calcification. There is a small amount of adjacent fluid suggesting there may be very slight calyceal obstruction. The ureter is not dilated. 5. Bilateral small ovarian follicles. Laboratory Results WBC 12.6 10^3/uL (4.0-10.0) H 01/25/22 11:40 RBC 5.10 10^6/uL (4.1-5.3) 01/25/22 11:40 Hgb 15.4 g/dL (11.5-15.3) H 01/25/22 11:40 Hct 47.0 % (37.0-47.0) 01/25/22 11:40 MCV 92.2 fl (81-99) 01/25/22 11:40 MCH 30.2 pg (28.0-34.0) 01/25/22 11:40 MCHC 32.8 g/dL (30.0-36.0) 01/25/22 11:40 RDW 13.2 % (12.1-15.1) 01/25/22 11:40 Plt Count 293 10^3/cmm (130-400) 01/25/22 11:40 MPV 10.2 fL (7.4-10.4) 01/25/22 11:40 Neut % (Auto) 73.2 % 01/25/22 11:40 Lymph % (Auto) 18.8 % 01/25/22 11:40 Dillon % (Auto) 4.4 % 01/25/22 11:40 Eos % (Auto) 2.9 % 01/25/22 11:40 Baso % (Auto) 0.4 % 01/25/22 11:40 Neut # (Auto) 9.19 10^3/uL (1.8-7.7) H 01/25/22 11:40 Lymph # (Auto) 2.4 10^3/uL (0.8-4.8) 01/25/22 11:40 Dillon # (Auto) 0.6 10^3/uL (0.2-0.9) 01/25/22 11:40 Eos # (Auto) 0.4 10^3/uL (0.0-0.8) 01/25/22 11:40 Baso # (Auto) 0.1 10^3/uL (0.0-0.1) 01/25/22 11:40 Nucleated RBC % (auto) 0 % 01/25/22 11:40 Nucleated RBCs # 0.0 /100WBC 01/25/22 11:40 Sodium 138 mmol/L (136-145) 01/25/22 11:40 Potassium 3.7 mmol/L (3.5-5.1) 01/25/22 11:40 Chloride 101 mmol/L (98-107) 01/25/22 11:40 Carbon Dioxide 24 mmol/L (22-29) 01/25/22 11:40 Anion Gap 16.7 (5-19) 01/25/22 11:40 BUN 12 mg/dL (6-20) 01/25/22 11:40 Creatinine 0.5 mg/dL (0.5-0.9) 01/25/22 11:40 GFR Calculation 138.1 mL/min (90-130) H 01/25/22 11:40 Glucose 93 mg/dL (65-115) 01/25/22 11:40 Calculated Osmolality 285 mOsm/kg (285-295) 01/25/22 11:40 Lactate 1.2 mmol/L (0.5-2.2) 01/25/22 11:40 Calcium 9.1 mg/dL (8.5-10.5) 01/25/22 11:40 Total Bilirubin 0.3 mg/dL (0.15-1.2) 01/25/22 11:40 AST 18 U/L (0-32) 01/25/22 11:40 ALT 26 U/L (0-33) 01/25/22 11:40 Alkaline Phosphatase 94 IU/L (35-105) 01/25/22 11:40 Troponin T Gen 5 ng/L 7 ng/L (0-10) 01/25/22 11:40 Total Protein 7.1 g/dL (6.6-8.7) 01/25/22 11:40 Albumin 4.9 g/dL (3.5-5.2) 01/25/22 11:40 Globulin 2.2 g/dL (1.3-4.6) 01/25/22 11:40 Lipase 20 U/L (13-60) 01/25/22 11:40 Urine HCG, Qual Negative (Negative) 01/25/22 12:33 Imaging Data Other Imaging: Radiologist's impression: [address] [place] [address] CT Scan Report Signed Patient: Crystal Davies Unit #: [id number] : 1985 Age/Sex: 36 / F ADM Date: 01/25/22 Loc: ER Room/Bed: Attending Dr: Ordering Provider/Ordering MD: Tere Huerta MD Date of Service: 01/25/22 Procedure(s): CT abdomen pelvis w con* [id number] Accession Number(s): [id number] Report Number: [id number] WS: [id number] CT ABDOMEN AND PELVIS WITH CONTRAST HISTORY: upper abdominal pain radiating to the back TECHNIQUE: Imaging performed of the abdomen and pelvis with IV contrast.? Single phase imaging of the abdomen. Coronal and sagittal reformats are submitted.? All CT scans at [facility] use at least one of these dose optimization techniques: automated exposure control; mA and/or kV adjustment per patient size (includes targeted exams where dose is matched to clinical indication); or iterative reconstruction. IV CONTRAST: Omnipaque 300; 95 mL IV. Oral contrast: No DLP: 1757.87 mGy.cm COMPARISON: 01/07/2021 Lower thorax: Lung bases are clear. Heart is normal size. No hiatal hernia. Liver/biliary system: Normal size with no intrahepatic dilatation. Normal portal vein. Gallbladder: Normal. No gallstones or wall thickening. No pericholecystic fluid.? Pancreas: Normal size pancreas and pancreatic duct. No adjacent inflammation. Spleen: Normal size spleen. No mass or infarct. Adrenal glands: Normal. Right kidney: Normal. Left kidney: Normal size kidney with no perinephric stranding. No significant change in the upper pole calcification measuring 12 x 10 mm. There is a very small amount of increased fluid surrounding the calcification probably representing very mild calyceal obstruction. No ureteral calcification. Aorta: Normal. Lymphadenopathy: None. Free fluid: None. GI tract: Nondistended stomach and small bowel. No obstruction. The appendix is normal. No colon obstruction. Abdominal wall: Unremarkable abdominal wall. No hernia. Pelvis: No free fluid or adenopathy in the pelvis. Complex cystic mass RIGHT ovary measures 3.4 x 2.7 cm. Probably a cluster of follicles. Not significantly enlarged. There is a smaller follicle in the LEFT ovary. Normal anteverted uterus. Bones: Unremarkable. CT/CT abdomen pelvis w con* [id number] IMPRESSION: ? 1.? Normal appendix. 2.? No evidence for pancreatitis. 3.? No GI tract obstruction or free air. 4.? No change in size of the upper pole LEFT renal calcification. There is a small amount of adjacent fluid suggesting there may be very slight calyceal obstruction. The ureter is not dilated. 5.? Bilateral small ovarian follicles. ? Dictated By: Santa Gamez DO Signed By: Santa Gamez DO Signed Date/Time: 01/25/22 1300 DD/ 1252 Discharge Plan Discharge Patient Disposition: Home Clinical Impression: Abdominal pain, Nausea & vomiting Condition: Stable Prescriptions: New acetaminophen 500 mg tablet 500 mg PO Q6H PRN (Reason: pain) 5 Days Qty: 20 0RF Pepcid 20 mg tablet 20 mg PO BID PRN (Reason: abdominal pain) 10 Days Qty: 20 0RF ondansetron 4 mg tablet,disintegrating 4 mg PO TID PRN (Reason: nausea and vomiting) 4 Days Qty: 12 0RF Maalox Advanced 1,000-60 mg tablet,chewable 1 tab PO TID PRN (Reason: abdominal pain) 7 Days Qty: 21 0RF No Action acetaminophen [Tylenol Extra Strength] 500 mg Tablet 1,000 mg PO Q4H PRN (Reason: Pain) 0RF clonidine HCl 0.1 mg tablet 0.1 mg PO Q6H PRN (Reason: Blood Pressure) 0RF ibuprofen 200 mg Tablet 400 mg PO Q4H PRN (Reason: Pain) 0RF Centrum 0.4-162-18 mg Tablet 1 tab PO DAILY 0RF amlodipine 10 mg tablet 10 mg PO BEDTIME 0RF Discharge Orders: Discharge ED (Routine); Ordered 01/25/22 Ordered By: Tere Huerta Referrals: Myke Cutler MD [Primary Care Provider] - Discharge Diet: Advance as tolerated Discharge Activity: Increase activity as tolerated Patient Instructions: Abdominal Pain (ED) Activity Restrictions/Additional Instructions: Please come back if you have any worsening abdominal pain, fever or chills, nausea or vomiting, diarrhea, blood in the stool, inability hold down liquid or solids, or any new concerning complaints. Please return if you develop continued nausea, vomiting, or develop fevers, chills, abdominal pain, abdominal pain that is in the lower right side of your abdomen, or any other concerning signs or symptoms. Here's a copy of your CT report. Please follow up with your primary care provider for renal calcification. [address] [address] [address] Scan Report Signed Patient: Crystal Davies [id number] [facility] 1985 [id number] Age/Sex: 36 / F ADM Date: 01/25/22 Loc: ER Room/Bed: Attending Dr: Ordering Provider/Ordering MD: Tere Huerta MD Date of Service: 01/25/22 Procedure(s): CT abdomen pelvis w con* [id number] Accession Number(s): [id number] Report Number: [id number] WS: [id number] CT ABDOMEN AND PELVIS WITH CONTRAST HISTORY: upper abdominal pain radiating to the back TECHNIQUE: Imaging performed of the abdomen and pelvis with IV contrast.? Single phase imaging of the abdomen. Coronal and sagittal reformats are submitted.? [facility] use at [facility] one of these dose optimization techniques: automated exposure control; mA and/or kV adjustment per patient size (includes targeted exams where dose is matched to clinical indication); or iterative reconstruction. IV CONTRAST: Omnipaque 300; 95 mL IV. Oral contrast: No DLP: 1757.87 mGy.cm COMPARISON: 01/07/2021 Lower thorax: Lung bases are clear. Heart is normal size. No hiatal hernia. Liver/biliary system: Normal size with no intrahepatic dilatation. Normal portal vein. Gallbladder: Normal. No gallstones or wall thickening. No pericholecystic fluid.? Pancreas: Normal size pancreas and pancreatic duct. No adjacent inflammation. Spleen: Normal size spleen. No mass or infarct. Adrenal glands: Normal. Right kidney: Normal. Left kidney: Normal size kidney with no perinephric stranding. No significant change in the upper pole calcification measuring 12 x 10 mm. There is a very small amount of increased fluid surrounding the calcification probably representing very mild calyceal obstruction. No ureteral calcification. Aorta: Normal. Lymphadenopathy: None. Free fluid: None. GI tract: Nondistended stomach and small bowel. No obstruction. The appendix is normal. No colon obstruction. Abdominal wall: Unremarkable abdominal wall. No hernia. Pelvis: No free fluid or adenopathy in the pelvis. Complex cystic mass RIGHT ovary measures 3.4 x 2.7 cm. Probably a cluster of follicles. Not significantly enlarged. There is a smaller follicle in the LEFT ovary. Normal anteverted uterus. Bones: Unremarkable. CT/CT abdomen pelvis w con* [id number] IMPRESSION: ? 1.? Normal appendix. 2.? No evidence for pancreatitis. 3.? No GI tract obstruction or free air. 4.? No change in size of the upper pole LEFT renal calcification. There is a small amount of adjacent fluid suggesting there may be very slight calyceal obstruction. The ureter is not dilated. 5.? Bilateral small ovarian follicles. ? Dictated By: Santa Gamez DO Signed By: Santa Gamez DO Signed Date/Time: 01/25/22 1300 DD/ 1252 Stand Alone Forms: Work/School Release Coding Level of Care Code ED Wildlife Control Operator for Chg Fwd Exam Comprehensive
[2022-01-25 11:53] LABS: Basophils # 0.1 10^3/uL (0.0-0.1); Basophils % 0.4 %; Eosinophils # 0.4 10^3/uL (0.0-0.8); Eosinophils % 2.9 %; Hemoglobin 15.4 g/dL (11.5-15.3); Lymphocytes # 2.4 10^3/uL (0.8-4.8); Lymphocytes % 18.8 %; Mean Corpuscular HGB Conc 32.8 g/dL (30.0-36.0); Mean Corpuscular Hemoglobin 30.2 pg (28.0-34.0); Mean Corpuscular Volume 92.2 fl (81-99); Mean Platelet Volume 10.2 fL (7.4-10.4); Monocytes # 0.6 10^3/uL (0.2-0.9); Monocytes % 4.4 %; Neutrophils # 9.19 10^3/uL (1.8-7.7); Neutrophils % 73.2 %; Nucleated Red Blood Cells % 0 %; Platelet Count 293 10^3/cmm (130-400); Red Cell Distribution Width 13.2 % (12.1-15.1); White Blood Count 12.6 10^3/uL (4.0-10.0)
[2022-01-25 12:17] VITALS: RESP 20
[2022-01-25] MEDS: morphine 4 mg/mL SDV 1 mL 2 MG IVP (12:17)
[2022-01-25] MEDS: sodium chloride 0.9% 1,000 ML 999 ML IV (12:19)
[2022-01-25] MEDS: famotidine 20 mg/2 mL INJ IVP (12:19)
[2022-01-25 12:36] LABS: Troponin T (5th) Once 7 ng/L (0-10)
[2022-01-25 12:40] LABS: Alanine Aminotransferase 26 U/L (0-33); Albumin Level 4.9 g/dL (3.5-5.2); Alkaline Phosphatase 94 IU/L (35-105); Anion Gap 16.7 (5-19); Aspartate Amino Transferase 18 U/L (0-32); Blood Urea Nitrogen 12 mg/dL (6-20); Calcium 9.1 mg/dL (8.5-10.5); Carbon Dioxide 24 mmol/L (22-29); Chloride 101 mmol/L (98-107); Globulin 2.2 g/dL (1.3-4.6); Glomerular Filtration Rate 138.1 mL/min (90-130); Glucose 93 mg/dL (65-115); Lipase 20 U/L (13-60); Osmolality Calculated 285 mOsm/kg (285-295); Potassium 3.7 mmol/L (3.5-5.1); Sodium 138 mmol/L (136-145); Total Bilirubin 0.3 mg/dL (0.15-1.2); Total Protein 7.1 g/dL (6.6-8.7)
[2022-01-25 12:41] LABS: Lactate (Lactic Acid level) 1.2 mmol/L (0.5-2.2)
[2022-01-25] MEDS: iohexol 350 mg/mL 100 mL Btl IV (12:41)
[2022-01-25 14:00] VITALS: BP 145/94; PULSE 85; RESP 16; O2SAT 96
[2022-01-25 14:28] LABS: Specific Gravity, Urine 1.005 (1.005-1.030); Urine Appearance SL Hazy (CLEAR); Urine Color Yellow (Yellow); pH Urine 7 (5-7)
[2022-01-25 14:29] LABS: Add Urine Microscopic? YES; Bilirubin Urine Neg (Negative); Blood Urine Trace (Negative); Glucose Urine UA Norm (Normal); Ketones Urine Negative (Negative); Leukocyte Esterase Urine Trace (Negative); Nitrate Urine Negative (Negative); Protein Urine Neg (Negative); Urobilinogen Urine Norm (Negative)
[2022-01-25 14:34] LABS: RBC Urine 0-4 /hpf (0-2); WBC Urine 0-4 /hpf (0-5)
[2022-01-25 14:35] LABS: Add Urine Culture? No
[2022-01-25 15:01] VITALS: BP 162/99; PULSE 83; RESP 18; O2SAT 98
== END 2022-01-25 15:00 | disposition home or self-care (01) ==
PROVIDERS: Emergency Provider Emergency Medicine; PCP Family Medicine Adult Medicine
DX: R10.9 Unspecified abdominal pain (principal); Z87.440 Personal history of urinary (tract) infections; F17.210 Nicotine dependence, cigarettes, uncomplicated; R11.2 Nausea with vomiting, unspecified
CPT/HCPCS: 71045; 74177; 80053; 81001; 81025; 83605; 83690; 84484; 85025; 93005; 96361; 96374; 96375; 99284; J2270; J3490; J7030; Q9967

== ENCOUNTER → 2022-06-25 13:53 | Outpatient (BNVA) | payer SELFPAY | PROVIDERS: PCP Family Medicine Adult Medicine; Visit Provider Nurse Practitioner Family | DX: J02.9 Acute pharyngitis, unspecified (principal) | CPT/HCPCS: 87880 ==

== ENCOUNTER 2023-01-30 18:13 | Emergency (ER) | payer SELFPAY ==
[2023-01-30 18:32] VITALS: BP 178/104; PULSE 116; RESP 18; TEMP 36.6; O2SAT 98; BMI 32.0
[2023-01-30 18:53] LABS: Basophils # 0.1 10^3/uL (0.0-0.1); Basophils % 0.6 %; Eosinophils # 0.5 10^3/uL (0.0-0.8); Eosinophils % 3.5 %; Hematocrit 46.7 % (37.0-47.0); Hemoglobin 15.5 g/dL (11.5-15.3); Lymphocytes # 3.1 10^3/uL (0.8-4.8); Lymphocytes % 21.8 %; Mean Corpuscular HGB Conc 33.2 g/dL (30.0-36.0); Mean Corpuscular Volume 93.4 fl (81-99); Mean Platelet Volume 10.3 fL (7.4-10.4); Monocytes # 0.6 10^3/uL (0.2-0.9); Monocytes % 4.3 %; Neutrophils # 9.78 10^3/uL (1.8-7.7); Neutrophils % 69.3 %; Nucleated Red Blood Cells % 0 %; Platelet Count 277 10^3/cmm (130-400); Red Cell Distribution Width 13.4 % (12.1-15.1); White Blood Count 14.1 10^3/uL (4.0-10.0)
[2023-01-30 19:23] LABS: Alanine Aminotransferase 16 U/L (0-33); Albumin Level 4.8 g/dL (3.5-5.2); Alkaline Phosphatase 100 U/L (35-105); Anion Gap 17.6 (5-19); Aspartate Amino Transferase 14 U/L (0-32); Blood Urea Nitrogen 21 mg/dL (6-20); Calcium 10.1 mg/dL (8.5-10.5); Carbon Dioxide 25 mmol/L (22-29); Chloride 98 mmol/L (98-107); Globulin 2.7 g/dL (1.3-4.6); Glomerular Filtration Rate 111.3 mL/min (90-130); Glucose 94 mg/dL (65-115); Osmolality Calculated 287 mOsm/kg (285-295); Potassium 3.6 mmol/L (3.5-5.1); Sodium 137 mmol/L (136-145); Total Bilirubin 0.2 mg/dL (0.15-1.2); Total Protein 7.5 g/dL (6.6-8.7)
[2023-01-30 19:24] LABS: Acetaminophen < 5.0 ug/mL (10-30); Alcohol Level < 10 mg/dL (0-10); Salicylate < 0.3 mg/dL (3-10)
--- NOTE | 2023-01-30 21:33 | CTR_ITS ---
PROCEDURE INFORMATION: Exam: CT Abdomen And Pelvis With Contrast Exam date and time: 01/30/2023 9:59 PM Age: 37 years old Clinical indication: Abdominal pain; Prior surgery; Surgery type: Tubal ligation; Patient HX: C/O epigastric pain x 6 days; Additional info: Abd pain TECHNIQUE: Imaging protocol: Computed tomography of the abdomen and pelvis with contrast. Radiation optimization: All CT scans at this facility use at least one of these dose optimization techniques: automated exposure control; mA and/or kV adjustment per patient size (includes targeted exams where dose is matched to clinical indication); or iterative reconstruction. Contrast material: OMNI 350; Contrast volume: 100 ml; Contrast route: INTRAVENOUS (IV); REPORTING DATA: Count of CT and Cardiac NM exams in prior 12 months: This patient has received 0 known CTs and 0 known cardiac nuclear medicine studies in the 12 months prior to the current study. COMPARISON: CT abdomen pelvis w con* [id number] 01/25/2022 12:40 PM RADIATION DOSE METRICS: Total DLP (mGy-cm): 753.83 FINDINGS: Lungs: The visualized lung bases are clear. Diaphragm: Tiny hiatal hernia. Liver: Liver is large and mildly hypodense. Gallbladder and bile ducts: No calcified gallstones or biliary dilation identified. Pancreas: Unremarkable with no suspicious mass. No ductal dilation. Spleen: The spleen is not enlarged. No suspicious enhancing mass is noted. Adrenal glands: Normal. No mass. Kidneys and ureters: Few minute bilateral kidney stones possible. Left mid kidney 1.3 cm calculus. No hydronephrosis. Stomach and bowel: No small bowel obstruction or free air. No overt mucosal thickening. Appendix: No evidence of appendicitis. Intraperitoneal space: Unremarkable. No free air. No suspicious fluid collection. Vasculature: No AAA or acute vascular lesion identified. Lymph nodes: No enlarged lymph nodes. Urinary bladder: Unremarkable as visualized. Reproductive: Left ovarian cystic foci measure up to about 2.2 cm. Bones/joints: No acute fracture. Soft tissues: No acute or suspicious finding noted. CT/CT abdomen pelvis w con* [id number] IMPRESSION: 1. No definite acute finding. 2. Multiple chronic findings above with imvl-[id number]-zilk-right nephrolithiasis, large liver, etc. Overall, very similar to about a year ago.
--- NOTE | 2023-01-30 21:34 | ED_ITS ---
HPI - Abdominal Pain General: Chief Complaint: Abdominal Pain Stated Complaint: abd pain, vomitting Time Seen by Provider: 01/30/23 21:25 Source: patient Mode of arrival: ambulatory Limitations: no limitations History of Present Illness: 37-year-old female states that over the last 6 days she been having intermittent epigastric pain states got much worse tonight and has been more constant states the deep pain in the epigastric region she states she take Pepcid with no improvement no history of any abdominal issues no abdominal surgeries she denies any chest pains she has had some nausea vomiting denies any fevers. Denies diarrhea. Associated Symptoms: Reports nausea and vomiting; Denies chills, diarrhea, dysuria and fever(s) Review of Systems Const: Reports: change in appetite; Denies: fever(s), chills or body aches Eyes: Denies: eye discomfort ENMT: Denies: throat pain or dental pain Card: Denies: chest pain Resp: Denies: dyspnea GI: Reports: abdominal pain, nausea and vomiting; Denies: diarrhea : Denies: dysuria Musc: Denies: neck pain or back pain Skin/Breast: Denies: rash Neuro: Denies: headache(s) PFSH ED PFSH: Medical History Anxiety History of kidney stones Muscle tension headache Surgical History Hx of tubal ligation 2017 Family History Other CAD (coronary artery disease) Cancer Chronic kidney disease (CKD) Diabetes Hyperlipidemia Hypertension Stroke Social History Smoking and tobacco status: current every day smoker cigarettes Packs smoked per day: 1 Alcohol intake: current Alcohol intake frequency: few times a week Substance/Drug Use: never Adopted: No Caregiver/support person: No Lives independently: Yes Housing: House Marital status: Single Number of children: 5 service: No Current occupational status: employed Current occupational exposures/hazards: No Sexually active: Yes Do you think of yourself as: Straight/Heterosexual Current gender identity: Female Agree to transfusion: Yes (11/07/2019) Physical Exam Const: COMMON NORMALS: no acute distress, patient oriented x3 and healthy appearing HENMT: COMMON NORMALS: normocephalic and atraumatic HEAD & SCALP: normocephalic and atraumatic Eye: COMMON NORMALS: conjunctivae normal CONJUNCTIVA: Yes conjunctivae normal Neck/C-Spine: COMMON NORMALS: supple Chest: COMMONS NORMALS: normal inspection of the chest and normal palpation of entire chest wall Resp: COMMON NORMALS: normal respiratory effort, No retractions, No use of accessory muscles and clear to auscultation bilaterally AUSCULTATION: clear to auscultation bilaterally Cardio: COMMON NORMALS: regular rate, regular rhythm and No murmurs present (Cardio) RATE: regular rate RHYTHM: regular rhythm GI: COMMON NORMALS: Normal to inspection, nondistended, normoactive bowel sounds present, Soft to palpation and no masses PALPATION: Yes Soft to palpation OTHER: epigastric tenderness Extremity: COMMON NORMALS: normal to inspection and full ROM Neuro: COMMON NORMALS: patient oriented x3, moves all extremities and no focal motor deficits Psych: COMMON NORMALS: mental status grossly normal, Normal thought process present and cooperative THOUGHT PROCESS: Normal thought process present Skin: COMMON NORMALS: no rashes or lesions noted and no wounds GENERAL SKIN EXAM: no rashes or lesions noted Course Vital Signs: Vital signs: Vital Signs Temperature 97.9 F 01/30/23 18:32 Pulse Rate 116 H 01/30/23 18:32 Respiratory Rate 18 01/30/23 21:47 Blood Pressure 178/104 01/30/23 18:32 Pulse Oximetry 98 01/30/23 18:32 Oxygen Delivery Me thod Room Air 01/30/23 18:32 MDM - Abdominal Pain Medical Decision Making Patient presents here with likely gastritis her pain was improved with GI cocktail CT scan and blood work here are normal we will start her on Protonix along with pain medication she is to follow-up with PCP and return if worsening. Lab Data 01/30/23 18:27 01/30/23 18:27 Labs/Radiology: Radiology Impressions Abdomen/Pelvis CT 01/30/23 21:33 IMPRESSION: 1. No definite acute finding. 2. Multiple chronic findings above with ixav-obsldjo-axgn-right nephrolithiasis, large liver, etc. Overall, very similar to about a year ago. Laboratory Results WBC 14.1 10^3/uL (4.0-10.0) H 01/30/23 18: RBC 5.00 10^6/uL (4.1-5.3) 01/30/23 18: Hgb 15.5 g/dL (11.5-15.3) H 01/30/23 18: Hct 46.7 % (37.0-47.0) 01/30/23: MCV 93.4 fl (81-99) 01/30/23: MCH 31.0 pg (28.0-34.0) 01/30/23 18: MCHC 33.2 g/dL (30.0-36.0) 01/30/23: RDW 13.4 % (12.1-15.1) 01/30/23 Plt Count 277 10^3/cmm (130-400) 01/30/23 MPV 10.3 fL (7.4-10.4) 01/30/23: Neut % (Auto) 69.3 % 01/30/23: Lymph % (Auto) 21.8 % 01/30/23: [place] % (Auto) 4.3 % 01/30/23 18: Eos % (Auto) 3.5 % 01/30/23: Baso % (Auto) 0.6 % 01/30/23: Neut # (Auto) 9.78 10^3/uL (1.8-7.7) H 01/30/23: Lymph # (Auto) 3.1 10^3/uL (0.8-4.8) 01/30/23: [place] # (Auto) 0.6 10^3/uL (0.2-0.9) 01/30/23: Eos # (Auto) 0.5 10^3/uL (0.0-0.8) 01/30/23: Baso # (Auto) 0.1 10^3/uL (0.0-0.1) 01/30/23: Nucleated RBC % (auto) 0 % 01/30/23: Nucleated RBCs # 0.0 /100WBC 01/30/23 18: Sodium 137 mmol/L (136-145) 01/30/23 18:27 Potassium 3.6 mmol/L (3.5-5.1) 01/30/23 18:27 Chloride 98 mmol/L (98-107) 01/30/23 18:27 Carbon Dioxide 25 mmol/L (22-29) 01/30/23 18:27 Anion Gap 17.6 (5-19) 01/30/23 18:27 BUN 21 mg/dL (6-20) H 01/30/23 18:27 Creatinine 0.6 mg/dL (0.5-0.9) 01/30/23 18:27 GFR Calculation 111.3 mL/min (90-130) 01/30/23 18:27 Glucose 94 mg/dL (65-115) 01/30/23 18: Calculated Osmolality 287 mOsm/kg (285-295) 01/30/23 18:27 Calcium 10.1 mg/dL (8.5-10.5) 01/30/23 18: Total Bilirubin 0.2 mg/dL (0.15-1.2) 01/30/23 18:27 AST 14 U/L (0-32) 01/30/23 18:27 ALT 16 U/L (0-33) 01/30/23 18:27 Alkaline Phosphatase 100 U/L (35-105) 01/30/23 18:27 Total Protein 7.5 g/dL (6.6-8.7) 01/30/23 18: Albumin 4.8 g/dL (3.5-5.2) 01/30/23 18:27 Globulin 2.7 g/dL (1.3-4.6) 01/30/23 18:27 HCG, Qual Negative (Negative) 01/30/23 21:24 Salicylates < 0.3 mg/dL (3-10) L 01/30/23 18:27 Urine Opiates Screen Negative ng/mL (Negative) 01/30/23 21:24 Acetaminophen < 5.0 ug/mL (10-30) L 01/30/23 18:27 Ur Barbiturates Screen Negative ng/mL (Negative) 01/30/23 21:24 Ur Phencyclidine Scrn Negative ng/mL (Negative) 01/30/23 21:24 Ur Amphetamines Screen Negative ng/mL (Negative) 01/30/23 21:24 U Benzodiazepines Scrn Negative ng/mL (Negative) 01/30/23 21:24 Urine Cocaine Screen Negative ng/mL (Negative) 01/30/23 21:24 U Marijuana (THC) Screen Negative ng/mL (Negative) 01/30/23 21:24 Ethyl Alcohol < 10 mg/dL (0-10) 01/30/23 18:27 Discharge Plan Discharge Patient Disposition: Home Clinical Impression: Abdominal pain Condition: Stable Prescriptions: New hydrocodone-acetaminophen 5-325 mg tablet 1 tab PO Q6H PRN (Reason: pain) Qty: 14 0RF ondansetron 4 mg tablet,disintegrating 4 mg PO Q6H PRN (Reason: nausea and vomiting) Qty: 14 0RF No Action amlodipine 10 mg tablet 10 mg PO DAILY 30 Days Qty: 30 5RF Rx Instructions: Take 1/2 tab for the next 4 days then increase to one tab daily. hydrochlorothiazide 25 mg tablet 25 mg PO DAILY Qty: 30 5RF acetaminophen [Tylenol Extra Strength] 500 mg Tablet 1,000 mg PO Q4H PRN (Reason: Pain) ibuprofen 200 mg Tablet 400 mg PO Q4H PRN (Reason: Pain) Centrum 0.4-162-18 mg Tablet 1 tab PO DAILY Discharge Orders: Discharge ED (Routine); Ordered 01/30/23 Ordered By: Carrie Hernandes Referrals: Jaydon Renteria DO [Primary Care Provider] - 1-3 days Discharge Diet: Advance as tolerated Discharge Activity: Resume usual activity Patient Instructions: Abdominal Pain (ED), Opioid Safety Coding Level of Care Code ED Purification Operator Helper for Demetrius Sotelo
[2023-01-30] MEDS: lidocaine 2% viscous 15 ML, aluminum-mag hydrox-simethicon 30 ML, sucralfate oral liq 1 GM PO ×2 (21:37→23:39)
[2023-01-30 21:38] LABS: HCG Qualitative Urine. Negative (Negative)
[2023-01-30 21:40] LABS: Amphetamines Screen Urine Negative (Negative); Barbiturates Screen Urine Negative (Negative); Benzodiazepines Screen Urine Negative (Negative); Cocaine Screen Urine Negative (Negative); Opiate Screen Urine Negative (Negative); PCP Screen Urine Negative (Negative); THC Screen Urine Negative (Negative)
[2023-01-30] MEDS: ondansetron 2 mg/ML SDV 2 mL 4 MG IVP (21:46)
[2023-01-30 21:47] VITALS: RESP 18
[2023-01-30] MEDS: morphine 4 mg/mL SDV 1 mL IVP (21:47)
[2023-01-30] MEDS: iohexol 350 mg/mL 500 mL Btl (per mL) IV (22:01)
[2023-01-30 22:07] VITALS: BP 165/98; PULSE 77; RESP 16; O2SAT 94
[2023-01-30 23:00] VITALS: BP 158/90; PULSE 77; RESP 17; O2SAT 95
[2023-01-30] MEDS: HYDROcodone-acetaminophen 5-325 mg Tablet 1 TAB PO (23:40)
[2023-01-30 23:45] VITALS: PULSE 81; O2SAT 96
== END 2023-01-30 23:48 | disposition home or self-care (01) ==
PROVIDERS: Emergency Provider Emergency Medicine; PCP Family Medicine
DX: R10.13 Epigastric pain (principal); F17.210 Nicotine dependence, cigarettes, uncomplicated
CPT/HCPCS: 36415; 74177; 80053; 80306; 80307; 81025; 85025; 96374; 96375; 99285; J2270; J2405; Q9967

== ENCOUNTER 2024-03-15 10:34 | Emergency (ER) | payer SELFPAY ==
[2024-03-15] VITALS (12 sets, daily range): BP systolic 133–166; BP diastolic 86–120; PULSE 78–81; RESP 15–18; O2SAT 93–96
--- NOTE | 2024-03-15 10:44 | XRR_ITS ---
PROCEDURE INFORMATION: Exam: XR Chest Exam date and time: 03/15/2024 11:15 AM Age: 39 years old Clinical indication: Dyspnea; Additional info: Dyspnea/cough TECHNIQUE: Imaging protocol: Radiologic exam of the chest. Views: 1 view. COMPARISON: 1. CR XR chest 1V portable [id number] 01/25/2022 11:11 AM 2. CR XR chest 1V portable [id number] 04/13/2020 12:04 PM 3. CR XR chest 1V portable [id number] 04/11/2020 2:06 PM FINDINGS: Lungs: Fullness, prominence right hilar region appearing changed compared to prior study. Possible slight infiltrate and/or atelectasis lower right hilar/perihilar region, projecting infrahilar, obscuring right heart margin. Slight atelectasis, fibrosis, and/or infiltrate lung bases bilaterally. Pleural spaces: No large or obvious pneumothorax nor pleural effusion seen. Heart/Mediastinum: Heart size appears upper limits of normal, slightly increased. Bones/joints: Mild curvature spine. XR/XR chest 1V portable [id number] IMPRESSION: 1. Fullness, prominence right hilar region appearing changed compared to prior study. Possible slight infiltrate and/or atelectasis lower right hilar/perihilar region, projecting infrahilar, obscuring right heart margin. Slight atelectasis, fibrosis, and/or infiltrate lung bases bilaterally. Follow-up standard upright PA and lateral views of chest with deep inspiration recommended versus CT scan chest. 2. Heart size appears upper limits of normal, slightly increased.
--- NOTE | 2024-03-15 10:44 | ECG_ITS ---
[facility] Test Date: 2024-03-15 Pat Name: Crystal Davies Department: Room: Gender: Female English Faculty Member: : 1985 Requested By: Ronnell Benton Order Number: [id number] Roosevelt MD: Nando Reeves M.D. Measurements Intervals Howard Rate: 119 P: 66 VT: 133 QRS: 13 QRSD: 146 T: 87 QT: 364 QTc: 513 Interpretive Statements SINUS TACHYCARDIA LEFT ATRIAL ENLARGEMENT [-0.15mV P-WAVE IN V1/V2] LEFT BUNDLE BRANCH BLOCK [120+ ms QRS DURATION, 80+ ms Q/S IN V1/V2, 85+ ms R IN I/aVL/V5/V6] Compared to ECG 01/25/2022 11:19:01 Atrial abnormality now present Left bundle-branch block now present Electronically Signed On 03-15-2024 21:33:10 CDT by Nando Reeves M.D. [id number] f
--- NOTE | 2024-03-15 10:49 | CTR_ITS ---
PROCEDURE INFORMATION: Exam: CT Head Without Contrast Exam date and time: 03/15/2024 11:14 AM Age: 39 years old Clinical indication: Visual disturbance; Additional info: Visual changes TECHNIQUE: Imaging protocol: Computed tomography of the head without contrast. Radiation optimization: All CT scans at this facility use at least one of these dose optimization techniques: automated exposure control; mA and/or kV adjustment per patient size (includes targeted exams where dose is matched to clinical indication); or iterative reconstruction. COMPARISON: 1. MR head wo/w con [id number] 11/17/2019 3:[address] head wo con* [id number] 10/28/2019 9:23 AM RADIATION DOSE METRICS: Total DLP (mGy-cm): 1062.38 FINDINGS: Brain: Sella appears empty or mostly empty. Stable appearance of hypodense focus right basal ganglia suggesting prominent CSF space/perivascular space or less likely chronic lacunar infarction. Otherwise, no new intracranial mass, midline shift, acute intracranial hemorrhage, nor abnormal extra-axial fluid collections seen. Vasquez-white matter differentiation appears maintained. Cerebral ventricles: Ventricles, sulci do not appear enlarged. Paranasal sinuses: Frontal sinus appears small/aplastic or hypoplastic, relatively non aerated/pneumatized/non developed. Visualized portions paranasal sinuses included appear clear bilaterally. Mastoid air cells: Partial opacification inferior left mastoid air cells appearing new, changed compared to 10/28/2019. Right mastoid air cells appear clear. Pharynx: Evidence of prominent adenoidal/tonsillar tissue posterior nasopharynx. Bones: No displaced, depressed skull fracture seen. Soft tissues: Unremarkable. CT/CT head wo con* [id number] IMPRESSION: 1. No acute intracranial abnormality seen. Sella appears empty or mostly empty. Stable appearance of hypodense focus right basal ganglia suggesting prominent CSF space/perivascular space or less likely chronic lacunar infarction. 2. Partial opacification inferior left mastoid air cells appearing new, changed compared to 10/28/2019. 3. Please see body of report for additional findings.
--- NOTE | 2024-03-15 10:50 | ED_ITS ---
HPI - General Adult 2 General: Chief complaint: General Medical Stated complaint: high bp, sob, SOB referral deidre Time Seen by Provider: 03/15/24 10:43 Source: patient Mode of arrival: ambulatory History of Present Illness: 39-year-old female presents emergency ro with complaint of elevated blood pressure short of breath and intermittent vision changes associated with headache. She has a known history of hypertension she not been taking her medications regularly states she is on amlodipine and hydrochlorothiazide no recent changes in her medications but she is not as compliant with. She was in to see at the walk-in clinic today for cystitis and was noted to have elevated blood pressure was referred to the emergency room. On arrival here she is tachycardic and hypertensive she has no focal neurologic deficits. She does have a moderate headache she also complains of some intermittent shortness of breath but no sharp chest pain. Onset (ago): day(s) Associated symptoms: Reports palpitations; Deny chest pain, confusion, cough, diaphoresis, decreased appetite, dyspnea, fevers/chills, headache(s), malaise, nausea, rash, seizures, short of breath, syncope, vomiting or weakness Review of Systems 2 Const: Denies: fever(s), chills, malaise or diaphoresis Card: Reports: palpitations; Denies: chest pain or syncope Resp: Denies: dyspnea GI: Denies: abdominal pain, nausea or vomiting : Denies: dysuria, urinary frequency or urinary urgency Musc: Denies: neck pain or back pain Skin/Breast: Denies: rash Neuro: Denies: headache(s) or confusion PFSH ED 2 PFSH: Medical History Muscle tension headache Anxiety History of kidney stones Surgical History Hx of tubal ligation 2017 Family History Other CAD (coronary artery disease) Cancer Chronic kidney disease (CKD) Diabetes Hyperlipidemia Hypertension Stroke Social History Smoking and tobacco/nicotine status: current every day tobacco/nicotine user cigarettes Packs smoked per day: 1 Alcohol intake: current Alcohol intake frequency: few times a week Substance/Drug Use: never Adopted: No Caregiver/support person: No Lives independently: Yes Housing: House Marital status: Single Number of children: 5 service: No Current occupational status: employed Current occupational exposures/hazards: No Sexually active: Yes Do you think of yourself as: Straight/Heterosexual Current gender identity: Female Agree to transfusion: Yes (11/07/2019) Physical Exam 2 Const: GENERAL APPEARANCE: cooperative and comfortable O RIENTATION/CONSCIOUSNESS: Yes awake, Yes oriented to person, Yes oriented to place and Yes oriented to time HENMT: COMMON NORMALS: normocephalic, atraumatic and hearing grossly normal bilaterally HEAD & SCALP: normocephalic and atraumatic Resp: COMMON NORMALS: normal respiratory effort, No retractions, No use of accessory muscles and clear to auscultation bilaterally AUSCULTATION: clear to auscultation bilaterally Cardio: COMMON NORMALS: regular rhythm and No murmurs present (Cardio) R ATE: tachycardic RHYTHM: regular rhythm GI: COMMON NORMALS: Soft to palpation and No hepatosplenomegaly present A USCULTATION: Yes normoactive bowel sounds PALPATION: Yes Soft to palpation, No Tenderness to palpation present (GI), No Guarding due to palpation present (GI) and Yes No hepatosplenomegaly present Extremity: COMMON NORMALS: normal to inspection, capillary refill normal, no clubbing, cyanosis or edema, no calf tenderness and no pedal edema Neuro: SENSORIUM/ORIENTATION: Yes oriented to person, Yes oriented to place and Yes oriented to time Skin: COMMON NORMALS: no rashes or lesions noted GENERAL SKIN EXAM: no rashes or lesions noted Course 2 Vital Signs: Vital signs: Vital Signs Pulse Rate 78 03/15/24 16:22 Respiratory Rate 15 03/15/24 16:22 Blood Pressure 154/91 03/15/24 16:22 Pulse Oximetry 94 03/15/24 16:22 [facility] - General Adult Medical Decision Making No real sign of UTI headache and other symptoms improved with blood pressure control. She is feeling much better will discharge home continue on the amlodipine and metoprolol XL 50 mg once daily start tomorrow. We did find small amount of blood in her urine there is no clear sign of infection and it looks like she has a left renal pelvis stone that has not began to move down the ureter. Do not think at this point she needs to be antibiotic recheck with her blood pressure in 1 week. Medical Records I reviewed the patient's medical records. Lab Data I reviewed the patient's lab results. 03/15/24 10:53 03/15/24 10:53 Radiology Impressions Chest X-Ray 03/15/24 10:44 IMPRESSION: 1. Fullness, prominence right hilar region appearing changed compared to prior study. Possible slight infiltrate and/or atelectasis lower right hilar/perihilar region, projecting infrahilar, obscuring right heart margin. Slight atelectasis, fibrosis, and/or infiltrate lung bases bilaterally. Follow-up standard upright PA and lateral views of chest with deep inspiration recommended versus CT scan chest. 2. Heart size appears upper limits of normal, slightly increased. Head CT 03/15/24 10:49 IMPRESSION: 1. No acute intracranial abnormality seen. Sella appears empty or mostly empty. Stable appearance of hypodense focus right basal ganglia suggesting prominent CSF space/perivascular space or less likely chronic lacunar infarction. 2. Partial opacification inferior left mastoid air cells appearing new, changed compared to 10/28/2019. 3. Please see body of report for additional findings. Abdomen/Pelvis CT 03/15/24 13:56 IMPRESSION: 1. Cardiomegaly. 2. Nonobstructing bilateral renal calculi the larger of which measures 13 mm in the upper pole calyx of the left kidney. No obstructing urinary tract calculi. Laboratory Results WBC 13.58 10^3/uL (3.29-11.43) H 03/15/24 10:53 RBC 5.12 10^6/uL (3.85-5.65) 03/15/24 10:53 Hgb 15.60 g/dL (11.27-16.99) 03/15/24 10:53 Hct 47.3 % (36-47) H 03/15/24 10:53 MCV 92.4 fl (85-98) 03/15/24 10:53 MCH 30.5 pg (27-33) 03/15/24 10:53 MCHC 33.0 g/dL (30-55) 03/15/24 10:53 RDW 12.8 % (12.1-15.1) 03/15/24 10:53 Plt Count 368 10^3/cmm (157-399) 03/15/24 10:53 MPV 10.1 fL (7.4-10.4) 03/15/24 10:53 Neut % (Auto) 75.5 % 03/15/24 10:53 Lymph % (Auto) 17.7 % 03/15/24 10:53 [place] % (Auto) 4.4 % 03/15/24 10:53 Eos % (Auto) 1.3 % 03/15/24 10:53 Baso % (Auto) 0.7 % 03/15/24 10:53 Neut # (Auto) 10.27 10^3/uL (1.8-7.7) H 03/15/24 10:53 Lymph # (Auto) 2.4 10^3/uL (0.8-4.8) 03/15/24 10:53 [place] # (Auto) 0.6 10^3/uL (0.2-0.9) 03/15/24 10:53 Eos # (Auto) 0.2 10^3/uL (0.0-0.8) 03/15/24 10:53 Baso # (Auto) 0.1 10^3/uL (0.0-0.1) 03/15/24 10:53 Nucleated RBC % (auto) 0 % 03/15/24 10:53 Nucleated RBCs # 0.0 /100WBC 03/15/24 10:53 Sodium 137 mmol/L (136-145) 03/15/24 10:53 Potassium 4.5 mmol/L (3.5-5.1) 03/15/24 10:53 Chloride 101 mmol/L (98-107) 03/15/24 10:53 Carbon Dioxide 23 mmol/L (22-29) 03/15/24 10:53 Anion Gap 17.5 (5-19) 03/15/24 10:53 BUN 11 mg/dL (6-20) 03/15/24 10:53 Creatinine 0.5 mg/dL (0.5-0.9) 03/15/24 10:53 GFR Calculation 136.0 mL/min (90-130) H 03/15/24 10:53 Glucose 115 mg/dL (65-115) 03/15/24 10:53 Calculated Osmolality 284 mOsm/kg (285-295) L 03/15/24 10:53 Calcium 9.6 mg/dL (8.5-10.5) 03/15/24 10:53 Total Bilirubin 0.5 mg/dL (0.15-1.2) 03/15/24 10:53 AST 21 U/L (0-32) 03/15/24 10:53 ALT 17 U/L (0-33) 03/15/24 10:53 Alkaline Phosphatase 90 U/L (35-105) 03/15/24 10:53 Troponin T Baseline 18 ng/L (0-10) H 03/15/24 10:53 Troponin T 120 Minute 21.81 ng/L (0-10) H 03/15/24 12:41 Delta Troponin T 3.81 ABS# (0-10) 03/15/24 12:41 Total Protein 7.9 g/dL (6.6-8.7) 03/15/24 10:53 Albumin 4.7 g/dL (3.5-5.2) 03/15/24 10:53 Globulin 3.2 g/dL (1.3-4.6) 03/15/24 10:53 Urine Color Yellow (Yellow) 03/15/24 13:10 Urine Appearance Clear (CLEAR) 03/15/24 13:10 Urine pH 7 (5-7) 03/15/24 13:10 Ur Specific [place] 1.010 (1.005-1.030) 03/15/24 13:10 Urine Protein Trace (Negative) 03/15/24 13:10 Urine Glucose (UA) Norm (Normal) 03/15/24 13:10 Urine Ketones Negative (Negative) 03/15/24 13:10 Urine Blood 2+ (Negative) H 03/15/24 13:10 Urine Nitrate Negative (Negative) 03/15/24 13:10 Urine Bilirubin Neg (Negative) 03/15/24 13:10 Urine Urobilinogen Norm mg/dL (Negative) 03/15/24 13:10 Ur Leukocyte Esterase Trace (Negative) H 03/15/24 13:10 Urine RBC 5-10 /hpf (0-2) H 03/15/24 13:10 Urine WBC 0-4 /hpf (0-5) H 03/15/24 13:10 Ur Squamous Epith Cells 0-4 /hpf (0-5) H 03/15/24 13:10 Amorphous Sediment Not Reportable 03/15/24 13:10 Urine Bacteria Trace /hpf (NONE) 03/15/24 13:10 Urine Opiates Screen Negative ng/mL (Negative) 03/15/24 13:10 Ur Barbiturates Screen Negative ng/mL (Negative) 03/15/24 13:10 Ur Phencyclidine Scrn Negative ng/mL (Negative) 03/15/24 13:10 Ur Amphetamines Screen Negative ng/mL (Negative) 03/15/24 13:10 U Benzodiazepines Scrn Negative ng/mL (Negative) 03/15/24 13:10 Urine Cocaine Screen Negative ng/mL (Negative) 03/15/24 13:10 U Marijuana (THC) Screen Negative ng/mL (Negative) 03/15/24 13:10 All radiology interpretation(s) finalized by discharge Discharge Plan Discharge Patient Disposition: Home Clinical Impression: Left renal stone Hypertension Qualifiers: Hypertension type: essential hypertension Qualified Code(s): I10 - Essential (primary) hypertension Condition: Stable Prescriptions: New Toprol XL 50 mg tablet extended release 24 hr 50 mg PO DAILY Qty: 30 0RF No Action sulfamethoxazole-trimethoprim [Bactrim DS] 800-160 mg tablet 1 tab PO BID 7 Days Qty: 14 0RF amlodipine 10 mg tablet 10 mg PO DAILY 30 Days Qty: 30 5RF Rx Instructions: Take 1/2 tab for the next 4 days then increase to one tab daily. hydrochlorothiazide 25 mg tablet 25 mg PO DAILY Qty: 30 5RF metronidazole 500 mg tablet 500 mg PO BID Qty: 14 0RF acetaminophen [Tylenol Extra Strength] 500 mg Tablet 1,000 mg PO Q4H PRN (Reason: Pain) ibuprofen 200 mg Tablet 400 mg PO Q4H PRN (Reason: Pain) Centrum 0.4-162-18 mg Tablet 1 tab PO DAILY hydrocodone-acetaminophen 5-325 mg tablet 1 tab PO Q6H PRN (Reason: pain) Qty: 14 0RF ondansetron 4 mg tablet,disintegrating 4 mg PO Q6H PRN (Reason: nausea and vomiting) Qty: 14 0RF Protonix 40 mg tablet,delayed release (DR/EC) 40 mg PO DAILY Qty: 60 0RF Discharge Orders: Discharge ED (Routine); Ordered 03/15/24 Ordered By: Ronnell Lucas Referrals: Jaydon Renteria, [Primary Care Provider] - Discharge Diet: Usual diet Discharge Activity: Increase activity as tolerated Patient Instructions: Opioid Safety, Pain Management Activity Restrictions/Additional Instructions: Thank you for choosing [facility] for your healthcare needs today. It is very important that you follow up as instructed or that you return to the Emergency Department should you have concerns or if your condition changes or worsens in any way. You were seen today for elevated blood pressure. Your blood pressure improved with medications given. Recommend you add Toprol-XL 50 mg once daily follow-up with your primary care doctor within the next week for blood pressure. Urine showing blood CT of your abdomen shows a left renal calculi that is not obstructing. That is likely the source of the blood you have told us you are recently started on some antibiotics for bladder infection complete that prescription as prescribed follow-up with your primary care doctor. Coding Level of Care Code ED Television Host for Demetrius Sotelo
[2024-03-15 10:58] LABS: Basophils # 0.1 10^3/uL (0.0-0.1); Basophils % 0.7 %; Eosinophils # 0.2 10^3/uL (0.0-0.8); Eosinophils % 1.3 %; Hematocrit 47.3 % (36-47); Lymphocytes # 2.4 10^3/uL (0.8-4.8); Lymphocytes % 17.7 %; Mean Corpuscular Hemoglobin 30.5 pg (27-33); Mean Corpuscular Volume 92.4 fl (85-98); Mean Platelet Volume 10.1 fL (7.4-10.4); Monocytes # 0.6 10^3/uL (0.2-0.9); Monocytes % 4.4 %; Neutrophils # 10.27 10^3/uL (1.8-7.7); Neutrophils % 75.5 %; Nucleated Red Blood Cells % 0 %; Platelet Count 368 10^3/cmm (157-399); Red Blood Count 5.12 10^6/uL (3.85-5.65); Red Cell Distribution Width 12.8 % (12.1-15.1); White Blood Count 13.58 10^3/uL (3.29-11.43)
[2024-03-15 11:17] LABS: Albumin Level 4.7 g/dL (3.5-5.2); Alkaline Phosphatase 90 U/L (35-105); Blood Urea Nitrogen 11 mg/dL (6-20); Calcium 9.6 mg/dL (8.5-10.5); Carbon Dioxide 23 mmol/L (22-29); Chloride 101 mmol/L (98-107); Creatinine Clr Calc Pharmacy 150.9361; Globulin 3.2 g/dL (1.3-4.6); Glucose 115 mg/dL (65-115); Osmolality Calculated 284 mOsm/kg (285-295); Sodium 137 mmol/L (136-145); Total Bilirubin 0.5 mg/dL (0.15-1.2); Total Protein 7.9 g/dL (6.6-8.7)
[2024-03-15 11:18] LABS: Troponin(5th) Baseline 18 ng/L (0-10)
[2024-03-15 11:19] LABS: Alanine Aminotransferase 17 U/L (0-33); Anion Gap 17.5 (5-19); Aspartate Amino Transferase 21 U/L (0-32); Potassium 4.5 mmol/L (3.5-5.1)
[2024-03-15] MEDS: labetalol 5 mg/mL SDV 20mL 10 MG IVP (11:31)
[2024-03-15] MEDS: metoprolol tartrate 50 mg Tablet 25 MG PO (11:32)
--- NOTE | 2024-03-15 12:44 | ECG_ITS ---
[facility] Test Date: 2024-03-15 Pat Name: Crystal Davies Department: Room: Gender: Female [employer] Emergency Dispatcher: : 1985 Requested By: Ronnell Benton Order Number: [id number] Roosevelt MD: Nando Reeves M.D. Measurements Intervals [place] Rate: 80 P: 9 NC: 150 QRS: 52 QRSD: 156 T: -34 QT: 436 QTc: 504 Interpretive Statements SINUS RHYTHM POSSIBLE LEFT ATRIAL ENLARGEMENT [-0.1mV P-WAVE IN V1/V2] INTRAVENTRICULAR CONDUCTION DELAY [130+ ms QRS DURATION] Compared to ECG 03/15/2024 10:50:55 Intraventricular conduction delay now present Sinus tachycardia no longer present Left bundle-branch block no longer present Electronically Signed On 03-15-2024 21:36:39 CDT by Nando Reeves M.D. [id number]
[2024-03-15 13:03] LABS: Troponin 5 2HR 21.81 ng/L (0-10); Troponin 5 2HR Delta 3.81 ABS# (0-10)
[2024-03-15 13:30] LABS: Urine Appearance Clear (CLEAR); Urine Color Yellow (Yellow); pH Urine 7 (5-7)
[2024-03-15 13:31] LABS: Add Urine Culture? No; Add Urine Microscopic? YES; Bacteria Urine TRACE /hpf; Bilirubin Urine Neg (Negative); Blood Urine 2+ (Negative); Glucose Urine UA Norm (Normal); Ketones Urine Negative (Negative); Leukocyte Esterase Urine Trace (Negative); Nitrate Urine Negative (Negative); Protein Urine Trace (Negative); Squamous Epithelial Cell Urine 0-4 /hpf (0-5); Urobilinogen Urine Norm (Negative); WBC Urine 0-4 /hpf (0-5)
[2024-03-15 13:34] LABS: Amphetamines Screen Urine Negative (Negative); Barbiturates Screen Urine Negative (Negative); Benzodiazepines Screen Urine Negative (Negative); Cocaine Screen Urine Negative (Negative); Opiate Screen Urine Negative (Negative); PCP Screen Urine Negative (Negative); THC Screen Urine Negative (Negative)
[2024-03-15] MEDS: acetaminophen 500 mg Tablet 1000 MG PO (13:52)
--- NOTE | 2024-03-15 13:56 | CTR_ITS ---
PROCEDURE INFORMATION: Exam: CT Abdomen And Pelvis Without Contrast Exam date and time: 03/15/2024 2:06 PM Age: 39 years old Clinical indication: Abdominal pain; Flank; Left; Prior surgery; Surgery date: 6+ months; Surgery type: Eswl; TECHNIQUE: Imaging protocol: Computed tomography of the abdomen and pelvis without contrast. Radiation optimization: All CT scans at this facility use at least one of these dose optimization techniques: automated exposure control; mA and/or kV adjustment per patient size (includes targeted exams where dose is matched to clinical indication); or iterative reconstruction. COMPARISON: CT abdomen pelvis w con* [id number] 01/30/2023 9:59 PM RADIATION DOSE METRICS: Total DLP (mGy-cm): 691.13 FINDINGS: Lungs: There are atelectatic changes at the lung bases. Heart: Cardiomegaly. Liver: Normal. No mass. Gallbladder and bile ducts: Normal. No calcified stones. No ductal dilation. Pancreas: Normal. No ductal dilation. Spleen: Normal. No splenomegaly. Adrenal glands: Normal. No mass. Kidneys and ureters: Nonobstructing bilateral renal calculi the larger of which measures 13 mm in the upper pole calyx of the left kidney. No obstructing urinary tract calculi. No hydronephrosis or hydroureter. Stomach and bowel: Unremarkable. No obstruction. No mucosal thickening. Appendix: No evidence of appendicitis. Intraperitoneal space: Unremarkable. No free air. No significant fluid collection. Vasculature: Unremarkable. No abdominal aortic aneurysm. Lymph nodes: Unremarkable. No enlarged lymph nodes. Urinary bladder: Unremarkable as visualized. Reproductive: Unremarkable as visualized. Bones/joints: Unremarkable. No acute fracture. Soft tissues: Unremarkable. CT/CT kidney stone [id number] IMPRESSION: 1. Cardiomegaly. 2. Nonobstructing bilateral renal calculi the larger of which measures 13 mm in the upper pole calyx of the left kidney. No obstructing urinary tract calculi.
== END 2024-03-15 16:24 | disposition home or self-care (01) ==
PROVIDERS: Emergency Provider Family Medicine; PCP Family Medicine
DX: I10 Essential (primary) hypertension (principal); N20.0 Calculus of kidney; F17.210 Nicotine dependence, cigarettes, uncomplicated; Z87.442 Personal history of urinary calculi
CPT/HCPCS: 36415; 70450; 71045; 74176; 80053; 80306; 81000; 81001; 84484; 85025; 93005; 96374; 99285; J3490

== ENCOUNTER 2024-05-13 06:00 | Outpatient (CLI) | payer MEDICAID, SELFPAY | END 2024-05-13 06:01 | disposition home or self-care (01) | LOC: RAD 06-13 07:50 | PROVIDERS: PCP Family Medicine; Visit Provider Family Medicine | DX: I16.0 Hypertensive urgency (principal); R00.2 Palpitations; R00.0 Tachycardia, unspecified; I10 Essential (primary) hypertension; Z11.59 Encounter for screening for other viral diseases | CPT/HCPCS: 80053; 80061; 81003; 82043; 82088; 82533; 84439; 84443; 85025; 85651; 86038; 86140; 86431; 86803; 87806 ==

== ENCOUNTER 2024-05-19 10:01 | Outpatient (CLI) | payer SELFPAY ==
[2024-05-19 11:10] LABS: Sodium, Urine Result 37 mmol/L; Urine Potassium 24 Hour 9 mmol/24H (25-125)
[2024-05-19 12:02] LABS: Potassium, Urine Result 26 mmol/L; Total Volume, Urine 2900 mL
== END 2024-05-19 10:02 | disposition home or self-care (01) ==
LOC: LAB 10:02
PROVIDERS: PCP Family Medicine; Visit Provider Family Medicine
DX: I16.0 Hypertensive urgency (principal); R00.2 Palpitations; R00.0 Tachycardia, unspecified; I10 Essential (primary) hypertension
CPT/HCPCS: 82384; 82530; 82570; 84133; 84300

== ENCOUNTER 2024-07-14 13:15 | Outpatient (CLI) | payer MEDICAID, SELFPAY ==
--- NOTE | 2024-07-14 13:22 | US_ITS ---
WS: [email or web address] RENAL ULTRASOUND HISTORY: REFRACTORY HYPERTENSION COMPARISON: 02/07/2017 TECHNIQUE: 2-D and color Doppler imaging of the kidney submitted. Right kidney: 11.4 cm x 4.9 cm x 5.2 cm. Cortex: 1.0 cm Normal echogenicity with no hydronephrosis or mass. Left kidney: 12.8 cm x 4.3 cm x 4.6 cm. Cortex: 1.1 cm Normal echogenicity with no hydronephrosis or mass. Aorta: Normal. Urinary Bladder: Minimally distended. US/US renal BI* [id number] IMPRESSION: Normal renal ultrasound.
== END 2024-07-14 13:16 | disposition home or self-care (01) ==
LOC: RAD 13:16
PROVIDERS: PCP Family Medicine; Visit Provider Family Medicine
DX: I16.0 Hypertensive urgency (principal); R00.2 Palpitations; R00.0 Tachycardia, unspecified; I10 Essential (primary) hypertension
CPT/HCPCS: 76770

== ENCOUNTER 2024-08-22 11:21 | Outpatient (CLI) | payer MEDICAID, SELFPAY ==
--- NOTE | 2024-08-22 11:23 | MM_ITS ---
WS: [email or web address] SCREENING DIGITAL BREAST TOMOSYNTHESIS MAMMOGRAM WITH CAD HISTORY: SCREENING COMPARISON: None available. Bilateral CC and MLO with tomosynthesis and synthetic mammography submitted. Computer aided detection analyzed. Breast composition: There are scattered areas of fibroglandular density. Well-circumscribed ovoid hig h density mass measures 1.3 x 0.8 x 1.8 cm in the medial anterior RIGHT breast near 3:00. No addition al masses or suspicious grouping of calcifications. MM/MM [facility] tomosynthesis [id number] IMPRESSION: BI-RADS: 0 - Incomplete: Need additional imaging evaluation. FOLLOW UP: Need Additional Imaging Recommendation: RIGHT breast ultrasound medial RIGHT breast near 3:00.
== END 2024-08-22 11:22 | disposition home or self-care (01) ==
LOC: RAD 11:22
PROVIDERS: PCP Family Medicine; Visit Provider Advanced Practice Midwife
DX: Z12.31 Encounter for screening mammogram for malignant neoplasm of breast (principal); R92.323 Mammographic fibroglandular density, bilateral breasts; N63.12 Unspecified lump in the right breast, upper inner quadrant
CPT/HCPCS: 77063; 77067

== ENCOUNTER 2024-09-22 09:56 | Outpatient (CLI) | payer MEDICAID, SELFPAY ==
--- NOTE | 2024-09-22 10:00 | US_ITS ---
WS: [email or web address] ULTRASOUND RIGHT BREAST HISTORY: ABNORMAL INCONCLUSIONS FINDINGS ON MAMMOGRAM COMPARISON: Screening mammogram 08/22/2024, prior ultrasound 09/19/2011 TECHNIQUE: 2-D and Doppler. Hypoechoic mass identified in the RIGHT breast at 3:00, 2 cm from the nipple. Mass measures 1.2 x 1.7 x 0.7 cm. Similar mass was noted on a prior ultrasound at 2 o'clock position. This is probably the s jay mass that was previously described. With no interval examinations this may be the same mass that was described in 2011. US/US breast RT limited* [id number] IMPRESSION: BI-RADS: 3- Probably Benign FOLLOW-UP: 6 Month Follow-up Recommend 6-month ultrasound follow-up of the mass in the RIGHT breast at 3:00. 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 No interval ultrasound evaluation to confir m stability.
== END 2024-09-22 09:57 | disposition home or self-care (01) ==
LOC: RAD 09:56
PROVIDERS: PCP Family Medicine; Visit Provider Advanced Practice Midwife
DX: R92.8 Other abnormal and inconclusive findings on diagnostic imaging of breast (principal); N63.12 Unspecified lump in the right breast, upper inner quadrant
CPT/HCPCS: 76642

== ENCOUNTER 2025-03-10 12:32 | Outpatient (CLI) | payer MEDICAID, SELFPAY ==
--- NOTE | 2025-03-10 12:38 | US_ITS ---
WS: [email or web address] ULTRASOUND RIGHT BREAST, limited HISTORY: 6-month follow-up RIGHT breast mass. COMPARISON: 09/22/2024, 09/19/2011 TECHNIQUE: 2-D and Doppler. Reidentified is the ovoid hypoechoic mass in the RIGHT breast at 3:00, 1 cm from the nipple. Mass measures 1.2 x 1.7 x 0.7 cm. There is mild peripheral increased vascularity. Mass has not increased in size. US/US breast RT limited* [id number] IMPRESSION: BI-RADS: 3- Probably Benign FOLLOW-UP: 6 Month Follow-up Patient to return in 6 months for annual mammogram which should be performed in August 2025. Follow-up RIGHT breast ultrasound should be obtained also at at time. Long-term stability of this mass needs to be documented.
== END 2025-03-10 12:33 | disposition home or self-care (01) ==
PROVIDERS: PCP Family Medicine; Visit Provider Advanced Practice Midwife
DX: N63.20 Unspecified lump in the left breast, unspecified quadrant (principal); N63.15 Unspecified lump in the right breast, overlapping quadrants
CPT/HCPCS: 76642

== ENCOUNTER → 2025-03-21 10:55 | Outpatient (BNVA) | payer MEDICAID, SELFPAY | PROVIDERS: PCP Family Medicine; Visit Provider Registered Nurse Neonatal Intensive Care | DX: S62.346A Nondisplaced fracture of base of fifth metacarpal bone, right hand, initial encounter for closed fracture (principal); W19.XXXA Unspecified fall, initial encounter | CPT/HCPCS: 73130 ==

== ENCOUNTER → 2025-06-02 10:37 | Outpatient (BNVA) | payer MEDICAID, SELFPAY | PROVIDERS: PCP Family Medicine; Visit Provider Registered Nurse Neonatal Intensive Care | DX: M25.619 Stiffness of unspecified shoulder, not elsewhere classified (principal) | CPT/HCPCS: 73030 ==

== ENCOUNTER → 2025-06-16 14:15 | Outpatient (BNVA) | payer MEDICAID, SELFPAY | PROVIDERS: PCP Family Medicine; Visit Provider Family Medicine | DX: E55.9 Vitamin D deficiency, unspecified (principal); I10 Essential (primary) hypertension; I16.0 Hypertensive urgency; R70.0 Elevated erythrocyte sedimentation rate; R52 Pain, unspecified; M25.50 Pain in unspecified joint; E83.42 Hypomagnesemia; R79.89 Other specified abnormal findings of blood chemistry | CPT/HCPCS: 80053; 80061; 82306; 82607; 82746; 83735; 84439; 84443; 85025; 85651; 86140 ==

== ENCOUNTER 2025-08-31 09:17 | Outpatient (CLI) | payer MEDICAID, SELFPAY ==
--- NOTE | 2025-08-31 09:00 | MM_ITS ---
WS: [email or web address] DIAGNOSTIC BILATERAL DIGITAL BREAST TOMOSYNTHESIS MAMMOGRAPHY WITH CAD RIGHT breast ultrasound, limited HISTORY: N63.10 - Unspecified lump in the right breast, unspecifie..., 6-month follow-up. COMPARISON: 09/22/2024, 03/10/2025, 08/22/2024, breast ultrasound 09/19/2011 TECHNIQUE: Bilateral craniocaudad, mediolateral oblique, and mediolateral views are submitted with tomosynthesis and SM. Spot compression RIGHT MLO and CC. Computer aided detection utilized. Breast composition: The breasts are heterogeneously dense, which may obscure small masses. Reidentified is a well-circumscribed lobulated mass of increased density in the medial RIGHT breast at 3:00 measuring 1.3 x 1.3 x 1.9 cm. Similar in size to prior studies. No additional suspicious mass or grouping of calcifications. Ultrasound to follow. RIGHT breast ultrasound, limited. Reidentified is a well-circumscribed hypoechoic mass in the RIGHT breast at 3:00, 1 cm from the nipple. No significant increased vascularity. Mass measures 1.3 x 1.9 x 0.7 cm. No increase in size. Stable size since 2010. MM/MM diag [facility] tomosynthesis [id number] IMPRESSION: BI-RADS: 2 - Benign FOLLOW UP: 1 Year Follow-up Return to annual screening mammography.
--- NOTE | 2025-08-31 09:21 | US_ITS ---
WS: [email or web address] DIAGNOSTIC BILATERAL DIGITAL BREAST TOMOSYNTHESIS MAMMOGRAPHY WITH CAD RIGHT breast ultrasound, limited HISTORY: N63.10 - Unspecified lump in the right breast, unspecifie..., 6-month follow-up. COMPARISON: 09/22/2024, 03/10/2025, 08/22/2024, breast ultrasound 09/19/2011 TECHNIQUE: Bilateral craniocaudad, mediolateral oblique, and mediolateral views are submitted with tomosynthesis and SM. Spot compression RIGHT MLO and CC. Computer aided detection utilized. Breast composition: The breasts are heterogeneously dense, which may obscure small masses. Reidentified is a well-circumscribed lobulated mass of increased density in the medial RIGHT breast at 3:00 measuring 1.3 x 1.3 x 1.9 cm. Similar in size to prior studies. No additional suspicious mass or grouping of calcifications. Ultrasound to follow. RIGHT breast ultrasound, limited. Reidentified is a well-circumscribed hypoechoic mass in the RIGHT breast at 3:00, 1 cm from the nipple. No significant increased vascularity. Mass measures 1.3 x 1.9 x 0.7 cm. No increase in size. Stable size since 2010. US/US breast RT limited* [id number] IMPRESSION: BI-RADS: 2 - Benign FOLLOW UP: 1 Year Follow-up Return to annual screening mammography.
== END 2025-08-31 09:18 | disposition home or self-care (01) ==
LOC: RAD 09:17
PROVIDERS: PCP Family Medicine; Visit Provider Family Medicine
DX: N63.41 Unspecified lump in right breast, subareolar (principal); R92.333 Mammographic heterogeneous density, bilateral breasts
CPT/HCPCS: 76642; 77062; G0279